=== PATIENT | female | born 1990 | race Hispanic/Latino ===

== ENCOUNTER 2022-03-27 11:56 | Emergency (ER) | payer OTHER ==
--- OUTSIDE RECORDS SUMMARY | 2022-03-27 12:00 | XMS REPORT | Continuity of Care Document ---
:1990 Author Organization [facility] t Address [address] [place] [address] Care Team Providers Name Role Phone PCP, PATIENT DOES NOT HAVE A Primary Care Physician Unavaila PEDRO PABLO Milian Attending Clinician Unavailable Matthias Albarado PA-C Attending Clinician Pedro Pablo Caraballo MD Attending Clinician Pob, [facility] Lab Main Attending Clinician Unavailable Only, Adc Test Attending Clinician Unavailable Doctor Unassigned, [place] Attending Clinician Unavailable MOOKIE Attending Clinician Unavailable Ramsey Yadav DO Attending Clinician Mary Lou Herman MD Attending Clinician Micah Fontanez CRNA Attending Clinician 2, [facility] Lab Attending Clinician Unavailable Room, [facility] Nst Attending Clinician Unavailable MATTHIAS ALBARADO Attending Clinician Unavailable Nurse, [facility] Attending Clinician Unavailable Princess Mao MD Attending Clinician PRINCESS MAO Attending Clinician Unavailable PRINCESS MAO Attending Clinician Unavailable LUCRETIA BEARDEN Attending Clinician Unavailable Ultrasound, [facility] Attending Clinician Unavailable Monisha COPELAND, [place] Attending Clinician Dominic COPELAND, Court [place] Attending Clinician [phone] Attending Clinician Unavailable Vivian Carey MD Attending Clinician VIVIAN CAREY Attending Clinician Unavailable Miguel A DUNCAN, Yancy Attending Clinician Unavailable EVIE KEEN Attending Clinician Unavailable Lori COPELAND, [place] Attending Clinician PEDRO PABLO CARABALLO Admitting Clinician Unavailable Pedro Pablo Caraballo MD Admitting Clinician MOOKIE Admitting Clinician Unavailable Payers Payer Name Policy Type Policy Number Effective Date Expiration Date Donn lainez [facility] [id number] 2020 [facility] MEDICAID 00:00:00 [facility] P [id number] [facility] - MANAGED MEDICAID [place] - [id number] WOMEN'S HEALTH PROGRAM (MEDICAID) Problems Condition Condition Condition Status Onset Resolution Last Treating Co mments Source Name Details Category Date Date Treatment Clinician Date Status Status Disease Active Univers post post 5-03 [place] of bilateral [place] salping[place] salpingect 00 Me dical carmita carmita Branch Encounter Encounter Disease Active Overview: Univers for tubal for tubal 06 Formattin i ty of ligation ligation 00:00: g of this Zeb as 00 note Medical might be Branch different from the original. Added automatic ally from request for surgery [id number] Encounter Encounter Disease Active Uni vers for tubal for tubal 308 ity of ligation ligation 00:00: [place] counseling counseling 00 Me dical Branch History of History of Disease Active U nivers 2019 01-08 it y of coronaviru coronaviru [place] disease 00 Medi carlitos (COVID-19) (COVID-19) Br anch Obesity Obesity Disease Active Univers (BMI (BMI 7-27 ity of 30-39.9) 30-39.9) 00:00: [address] Allergies, Adverse Reactions, Alerts Allergy Allergy Status Severity Reaction(s) Onset Inactive Treating Comm ents Source Name Type Date Date Clinician No Known DA Active U 2016-05 [facility] 2-08 Clear Allergie 00:00: [place] [address] [place] [address] FISH DA Active [place] 2014-05 [facility] STICKS 0-18 Clear 00:00: [place] 00 [facility] NO KNOWN Drug Active Univers ALLERGIE Class ity of S [facility] Social History Social Habit Start Date Stop Date Quantity Comments Source ASSERTION 2017[facility]06[facility]19 [facility] Exposure to 2021-08-29 2021-09-08 Not sure [facility]-CoV-2 00:00:00 09:32:00 [facility] (event) [place] Tobacco use and 2020-10-22 2020-10-22 Never used Universit y of exposure 00:00:00 00:00:00 [facility] Alcohol intake 2017-08-10 2017-08-10 Current [facility] 00:00:00 00:00:00 non-drinker of alcohol (finding) Sex Ass[birth year] At [birth year] [facility] 00:00:00 00:00:00 Smoking Status Start Date Stop Date Source Never smoker [facility] Medications Ordered Filled Start Stop Current Ordering Indication Dosage Frequency Signature Comments Components Source Medication Medication Date Date Medication? Clinician (SIG) Name Name cephALEXin 202- No [id number] 500mg Take 1 Univers 500 mg 504 05-12 capsule by ity of capsule 00:00: 04:59 mouth 4 [place] 00 :00 (four) Medical times [place] daily for 7 days. lactated Yes 1000mL at 100 Unive rs ringers IV 5-03 mL/hr, ity of infusion 19:00: 1,000 mL, [place] 1,000 mL 00 IV Medical Infusion, Branch CONTINUOUS , Starting on Wed09/09/21 at 1400, Until Discontinu ed, Routine, PACU HYDROcodone 2021- No 1{tbl} 1 tablet, Univers -acetaminop 09-09 05-03 Oral, ity of hen (NORCO 19:00: 19:09 ONCE, 1 Zeb as 5) 5-325 mg 00 :00 dose, On Medi carlitos tablet 1 Wed09/09/21 Branc h tablet at 1400, Routine, PACU HYDROcodone 2021-0 2021- No 1{tbl} 1 tablet, Univers -acetaminop 09-09 05-03 Oral, ity of hen (NORCO 19:00: 19:09 ONCE, 1 Zeb as 5) 5-325 mg 00 :00 dose, On Medi carlitos tablet 1 Wed09/09/21 Branc h tablet at 1400, Routine, PACU lactated 2021- No 1000mL at 100 Univ ers ringers IV 09-09 05-03 mL/hr, ity of infusion 19:00: 22:07 1,000 mL, Zeb as 1,000 mL 00 :32 IV Medical Infusion, Branch CONTINUOUS , Starting on Wed09/09/21 at 1400, Until Wed09/09/21 at 1707, Routine, PACU HYDROmorphO 2021-0 Yes .2mg 0.2 mg, Uni vers ne 5-03 Slow IV ity of (DILAUDID) 18:55: Push, [place] injection 41 Q5MIN PRN, Medi carlitos 0.2 mg 10 doses, Branch Starting on Wed09/09/21 at 1355, Until Discontinu ed, Routine, Pain (scale 7-10), PACU
Us e approved by (Faculty): PACU USE -ANESTHESI A SERVICE-HY DROMORPHON E INJECTIONS FENTanyl PF 2021- Yes 25ug 25 mcg, Uni vers (SUBLIMAZE 5-03 Slow IV ity of (PF)) 18:55: Push, [place] injection 41 Q5MIN PRN, Medi carlitos 25 mcg 4 doses, Branch Starting on Wed09/09/21 at 1355, Until Discontinu ed, Routine, Pain (scale 4-6), PACU ondansetron 2021-0 Yes 4mg 4 mg, Slow Univers (ZOFRAN 5-03 IV Push, ity of (PF)) 18:55: PRN, 1 [place] injection 4 41 dose, Medical mg Starting Branch on Wed09/09/21 at 1355, Until Discontinu ed, Routine, Nausea and Vomiting (N/V), PACU HYDROmorphO 2021- No .2mg 0.2 mg, Un fiordaliza ne 09-09 Slow IV ity of (DILAUDID) 18:55: 22:07 Push, [place] injection 41 :32 Q5MIN PRN, Medi carlitos 0.2 mg 10 doses, Branch Starting on Wed09/09/21 at 1355, Until Wed09/09/21 at 1707, Routine, Pain (scale 7-10), PACU
Us e approved by (Faculty): PACU USE -ANESTHESI A SERVICE-HY DROMORPHON E INJECTIONS FENTanyl PF 2021- No 25ug 25 mcg, Un fiordaliza (SUBLIMAZE 09-09 Slow IV ity o f (PF)) 18:55: 22:07 Push, [place] injection 41 :32 Q5MIN PRN, Medi carlitos 25 mcg 4 doses, Branch Starting on Wed09/09/21 at 1355, Until Wed09/09/21 at 1707, Routine, Pain (scale 4-6), PACU ondansetron 2021- No 4mg 4 mg, Slow Univers (ZOFRAN 09-09 IV Push, ity of (PF)) 18:55: 22:07 PRN, 1 [place] injection 4 41 :32 dose, Medical mg Starting Branch on Wed09/09/21 at 1355, Until Wed09/09/21 at 1707, Routine, Nausea and Vomiting (N/V), PACU bupivacaine Yes PRN, Univer s (preserv 03 Starting ity of free) 0.5% 18:26: on Wed [place] (SENSORCAIN 00 09/09/21 at [facility]) 0.5 1326, Branch % (5 mg/mL) Until injection Discontinu ed, Routine, Intra-op bupivacaine 2021- No PRN, Unive rs (preserv 09-09 05 Starting ity of free) 0.5% 18:26: 22:07 on Wed [facility] s (SENSORCAIN 00 :32 09/09/21 at Med ical E [facility]) 0.5 1326, Branch % (5 mg/mL) Until Tue injection 09/09/21 at 1707, Routine, Intra-op water for Yes PRN, Univers irrigation 5-03 Starting ity o f irrigation 18:25: on Tue [place] solution 00 09/09/21 at Medica l 1325, Branch Until Discontinu ed, Routine, Intra-op water for 2021- No PRN, Univers irrigation - 05-03 Starting ity of irrigation 18:25: 22:07 on Wed [place] solution 00 :32 09/09/21 at Medica l 1325, Branch Until e 09/09/21 at 1707, Routine, Intra-op lactated 2021- No 1000mL at 42 Unive rs ringers IV 5-03 05-03 mL/hr, ity of infusion 16:00: 15:54 1,000 mL, Zeb as 1,000 mL 00 :00 IV Medical Infusion, Branch ONCE, 1 dose, On Wed09/09/21 at 1100, Routine, DSU Pre-op lactated 2021- No 1000mL at 42 Unive rs ringers IV 5-03 05-03 mL/hr, ity of infusion 16:00: 15:54 1,000 mL, Zeb as 1,000 mL 00 :00 IV Medical Infusion, Branch ONCE, 1 dose, On Wed09/09/21 at 1100, Routine, DSU Pre-op ibuprofen Yes [id number] 600mg Take 1 Univers 600 mg 5-03 tablet by ity of tablet 00:00: mouth [place] 00 every 6 Medical (six) Branch hours as needed for Pain (scale 1-3) or Pain (scale 4-6). acetaminoph Yes [id number] 650mg Take 2 Univers en 5-03 tablets by ity of (TYLENOL) 00:00: mouth [place] 325 mg 00 every 6 Medical tablet (six) Branch hours as needed for Pain (scale 1-3) or Pain (scale 4-6). simethicone Yes [id number] 80mg Take 1 Univers 80 mg 5-03 tablet by ity of chewable 00:00: mouth [place] tablet 00 after Medical meals and Branch at bedtime. ibuprofen 2021-0 Yes [id number] 600mg Take 1 Univers 600 mg 5-03 tablet by ity of tablet 00:00: mouth [place] 00 every 6 Medical (six) Branch hours as needed for Pain (scale 1-3) or Pain (scale 4-6). acetaminoph 2021-0 Yes [id number] 650mg Take 2 Univers en 5-03 tablets by ity of (TYLENOL) 00:00: mouth [place] 325 mg 00 every 6 Medical tablet (six) Branch hours as needed for Pain (scale 1-3) or Pain (scale 4-6). simethicone 2021-0 Yes [id number] 80mg Take 1 Univers 80 mg 5-03 tablet by ity of chewable 00:00: mouth [place] tablet 00 after Medical meals and Branch at bedtime. ibuprofen 2021-0 Yes [id number] 600mg Take 1 Univers 600 mg 5-03 tablet by ity of tablet 00:00: mouth [place] 00 every 6 Medical (six) Branch hours as needed for Pain (scale 1-3) or Pain (scale 4-6). acetaminoph 2021-0 Yes [id number] 650mg Take 2 Univers en 5-03 tablets by ity of (TYLENOL) 00:00: mouth [place] 325 mg 00 every 6 Medical tablet (six) Branch hours as needed for Pain (scale 1-3) or Pain (scale 4-6). simethicone 2021-0 Yes [id number] 80mg Take 1 Univers 80 mg 5-03 tablet by ity of chewable 00:00: mouth [place] tablet 00 after Medical meals and Branch at bedtime. HYDROcodone 2021-2021- No [id number] 1{tbl} Take 1 U nivers -acetaminop 5-03 05-11 tablet by it y of hen 5-325 00:00: 04:59 mouth [place] mg tablet 00 :00 every 6 Medical (six) Branch hours as needed for Pain (scale 7-10) for up to 7 days. Indication s: acute pain HYDROcodone 2021-2021- No [id number] 1{tbl} Take 1 U nivers -acetaminop 5-03 05-11 tablet by it y of hen 5-325 00:00: 04:59 mouth [place] mg tablet 00 :00 every 6 Medical (six) Branch hours as needed for Pain (scale 7-10) for up to 7 days. Indication s: acute pain HYDROcodone 2021- No [id number] 1{tbl} Take 1 U nivers -acetaminop 5-03 05-11 tablet by it y of hen 5-325 00:00: 04:59 mouth [place] mg tablet 00 :00 every 6 Medical (six) Branch hours as needed for Pain (scale 7-10) for up to 7 days. Indication s: acute pain Yes [id number] 1{tbl} Take 1 Univers vitamin 3-09 tablet by ity of w/FA tablet 00:00: mouth [place] 00 daily. Medical Branch 2021- No [id number] 1{tbl} Take 1 Univers vitamin 3-09 05-03 tablet by ity of w/FA tablet 00:00: 00:00 mouth [place] 00 :00 daily. Medical Branch 2021- No [id number] 1{tbl} Take 1 Univers vitamin 3-09 05-03 tablet by ity of w/FA tablet 00:00: 00:00 mouth [place] 00 :00 daily. [facility] Vital Signs Vital Name Observation Time Observation Value Comments Source Systolic blood 2021-09-09 19:35:00 107 mm[Hg] [facility] Diastolic blood 2021-09-09 19:35:00 70 mm[Hg] [facility] [place] Heart rate 2021-09-09 19:30:00 60 /min [facility] Respiratory rate 2021-09-09 19:30:00 12 /min [facility] Oxygen saturation in 2021-09-09 19:30:00 99 /min [facility] Arterial blood by [facility] Pulse oximetry Branch Body temperature 2021-09-09 18:42:00 36.22 Piedad [facility] Body height 2021-08-26 15:28:00 154.9 cm [facility] Body weight 2021-08-26 15:28:00 64.4 kg [facility] BMI 2021-08-26 15:28:00 26.84 kg/m2 [facility] Systolic blood 2021-09-09 19:15:00 107 mm[Hg] Univer sity of pressure [facility] Diastolic blood 2021-09-09 19:15:00 57 mm[Hg] Unive rsity of pressure [facility] Heart rate 2021-09-09 19:15:00 64 /min Universi ty of [facility] Respiratory rate 2021-09-09 19:15:00 20 /min [facility] O[facility] saturation in 2021-09-09 19:15:00 100 /min [facility] Arterial blood by [facility] Pulse oximetry Branch Body temperature 2021-09-09 18:42:00 36.22 Piedad [facility] Body height 2021-08-26 15:28:00 154.9 cm Universi ty [facility] Body weight 2021-08-26 15:28:00 64.4 kg Universi ty [facility] BMI 2021-08-26 15:28:00 26.84 kg/m2 Universi ty [facility] Systolic blood 2021-09-08 14:41:00 112 mm[Hg] Univer sity of [facility] Diastolic blood 2021-09-08 14:41:00 76 mm[Hg] Unive rsity of [facility] Heart rate 2021-09-08 14:41:00 54 /min Universi ty [facility] Body temperature 2021-09-08 14:41:00 36.72 Piedad [facility] Body weight 2021-09-08 14:41:00 64.501 kg Universi ty [facility] BMI 2021-09-08 14:41:00 26.88 kg/m2 Universi ty [facility] Procedures Procedure Date / Time Performing Clinician Source Performed LAPAROSCOPIC 2021-09-09 17:34:00 Pedro Pablo Caraballo [facility] [place] SALPINGECTOMY [facility] POCT TEST 2021-09-09 15:32:[address] [facility] POCT TEST 2021-09-09 15:32:[address] [facility] Plan of Care Planned Activity Planned Date Details Comments Source Future Scheduled 2022-03-15 INFLUENZA [facility]ACC[facility] Test 01:39:57 [code = INFLUENZA VACCINE] Future Scheduled 2022-03-15 HEPATITIS B [facility] ospital Test 01:39:57 VACCINES (1 of 3 - 3-dose series) [code = HEPATITIS B VACCINES (1 of 3 - 3-dose series)] Future Scheduled 2022-03-15 COVID-19 VACCINE [facility] Test 01:39:57 (#1) [code = COVID-19 VACCINE (#1)] Future Scheduled 2022-03-15 Screening for [facility] Test 01:39:57 malignant neoplasm of cervix (procedure) [code = 415035126] Encounters Start End Encounter Admission Attending Care Care Encounter Source Date/Time Date/Time Type Type Clinicians Facility Department ID 2021-09-03 Outpatient PEDRO PABLO [facility] [id number] Univers 14:23:07 ity [facility] 2021-02-20 Outpatient [facility] [id number] [place] 21:47:45 [id number] [facility] 2021-09-29 2021-09-29 Outpatient PEDRO PABLO SHEPHERD [facility] [id number] Univers 08:45:00 08:45:00 ity [facility] 2021-09-10 2021-09-10 Case Per [place] [id number] Univers 00:00:00 00:00:00 Management Matthias HANDLEY [id number] ity [facility] [id number] [place] PROFESS[place] [id number] Ct dic[address] 2021-09-09 2021-09-09 Outpatient PEDRO PABLO [facility] [id number] Univers 10:16:00 14:50:00 ity [facility] 2021-09-09 2021-09-09 Hospital Pedro Pablo Caraballo [place] [id number] Univers 10:16:00 14:50:00 Encounter Ramiro HANDLEY [id number] ity [facility] [id number] [place] SURGICAL [id number] [address] 2021-09-09 2021-09-09 Surgery Pedro Pablo Caraballo [place] [id number] Univers 12:35:00 14:16:00 Cam [place] [id number] i ty of [facility] [id number] [place] SURGICAL [id number] [facility] 020 [place] 2021-09-08 2021-09-08 Office Pedro Pablo Caraballo [facility] [id number] Univers 09:45:00 09:57:31 Visit Ramiro PLATADOMINIC [id number] i ty of [facility] [id number] [place] PROFESS[place] [id number] Ct dical NAL 134 [facility] 2021-09-08 2021-09-08 Outpatient R PEDRO PABLO CARABALLO [facility] [id number] Univers 09:45:00 09:45:00 ity of [facility] 2021-09-08 2021-09-08 Optometry Doctor Srinivasa, [place] Lab Main [facility] [id number] [id number] Univers 09:00:00 09:15:00 Visit CaraballoScarlettjovan [place] [id number] ity of [place] [id number] [place] PROFESS[place] [id number] Ct dical NAL 353 [facility] 2021-09-08 2021-09-08 Outpatient R PEDRO PABLO CARABALLO [facility] [id number] Univers 09:00:00 09:00:00 ity of [facility] 2021-09-08 2021-09-08 Laboratory Only, Adc Test [facility] 1.2.840. [id number] Univers 08:45:00 09:00:00 Only Scarlett Caraballojovan [place] [id number] ity of [place] [id number] [place] CAMPUS [id number] [facility] 353 [place] 2021-09-08 2021-09-08 Orders Doctor WALLIS [id number] Univers 00:00:00 00:00:00 Only Unassigned, KACIE [id number] ity of [place] [facility] [id number] Zeb as [id number] [facility] 009 Branch 2021-09-04 2021-09-04 Outpatient R PEDRO PABLO CARABALLO [facility] [id number] Univers 09:45:00 09:45:00 ity of [facility] 2021-09-04 2021-09-04 Telephone Pedro Pablo Caraballo [facility] [id number] Univers 00:00:00 00:00:00 Cam [place] [id number] i ty of [place] 4.2.7.2.686 [place] PROFESS[place] [id number] [address] 2021-08-29 2021-08-29 Outpatient KIM_MACHELLE [facility] [id number] [place] 11:52:00 11:52:00 [facility] 2021-08-13 2021-08-13 Outpatient R SCARLETT CARABALLOEN [facility] [id number] Univers 11:15:00 11:34:52 ity of [facility] 2021-08-13 2021-08-13 [facility] [id number] Univers 11:15:00 11:34:52 Cam [place] [id number] ity of Visit [place] 4.2.7.2.686 [place] PROF[place] [id number] [address] 2021-08-06 2021-08-06 Telephone [facility] 1.2.840.114 [id number] Univers 00:00:00 00:00:00 Cam [place] [id number] i ty of [place] 4.2.7.2.686 [place] PROF[place] [id number] [address] 2021-07-28 2021-07-28 Orders Doctor KADI 1.2.840.114 [id number] Univers 00:00:00 00:00:00 Only Unassigned, KACIE [id number] ity of [place] [facility] 4.2.7.2.686 Zeb as [id number] [address] 2021-07-22 2021-07-22 Telephone Hal [facility] 1.2.840.114 [id number] Univers 00:00:00 00:00:00 Cam [place] [id number] i ty of [place] 4.2.7.2.686 [place] PROFESS[place] [id number] Ct dical NAL 134 [facility] 2021-07-21 2021-07-21 Outpatient R [facility] [id number] Univers 08:00:00 08:00:00 ity of [facility] 2021-07-18 2021-07-18 Telephone Pedro Pablo Carablalo [facility] 1.2.840.114 [id number] Univers 00:00:00 00:00:00 Cam [place] [id number] i ty of [place] 4.2.7.2.686 [place] PROFESSIO [id number] Ct dical NAL [address] [place] [address] 2021-07-17 2021-07-17 Outpatient R [facility] [id number] Univers 08:00:00 08:00:00 ity of [facility] 2021-07-15 2021-07-16 Hospital Ramsey Yadav [facility] 1.2.840.1 [id number] Univers 09:07:00 22:23:00 Encounter Mary Lou Herman END[place] [id number] ity of Pedro Pablo Caraballo Cam [place] 4.2.7.2.686 [facility] [id number] [address] 2021-07-16 2021-07-16 Anesthesia Estee [facility] 1.2.840.114 [id number] Univers 20:03:25 20:03:25 Event Micah [place] [id number] i ty of [place] 4.2.7.2.686 [place] CAMP[place] [id number] [address] 2021-07-15 2021-07-15 Telephone Pedro Pablo Caraballo [facility] 1.2.840.114 [id number] Univers 00:00:00 00:00:00 Ramiro ENDER [id number] i ty of [place] 4.2.7.2.686 [place] PROFESS[place] [id number] Ct dical NAL [address] [place] [address] 2021-07-14 2021-07-14 Optometry Doctor 2, Adc Lab [facility] 1.2.840.114 [id number] Univers 09:45:00 10:00:00 Visit Pedro Pablo Caraballo [id number] ity of [place] [id number] [place] PROF[place] [id number] Ct dical NAL 353 [facility] 2021-07-14 2021-07-14 Routine Room, [facility] 1.2.840.1 [id number] Univers 08:00:00 09:16:13 Pedro Pablo Caraballo [id number] ity of Visit [place] [id number] [place] PROFESS[place] [id number] Ct dical NAL 134 [facility] 2021-07-14 2021-07-14 Outpatient R PEDRO PABLO CARABALLO [facility] [id number] Univers 08:00:00 09:16:13 ity of [facility] 2021-07-14 2021-07-14 Outpatient R PEDRO PABLO CARABALLO [facility] [id number] Univers 08:00:00 09:16:13 ity [facility] 2021-07-14 2021-07-14 Orders Doctor KADI 1.2.840.114 [id number] Univers 00:00:00 00:00:00 Only Unassigned, KACIE [id number] ity of [place] [facility] 4.2.7.2.686 Zeb as [id number] [address] 2021-07-10 2021-07-10 Optometry Doctor 2, [facility] 1.2.840.114 [id number] Univers 09:30:00 09:45:00 Visit Pedro Pablo Caraballo [id number] ity of [place] 4.2.7.2.686 [place] PROF[place] [id number] Ct dical NAL 353 [facility] 2021-07-10 2021-07-10 Outpatient R PEDRO PABLO CARABALLO [facility] [id number] Univers 09:30:00 09:30:00 ity of [facility] 2021-07-10 2021-07-10 Routine Room, [facility] 1.2.840.1 [id number] Univers 08:00:00 09:15:03 Pedro Pablo Caraballo [id number] ity of Visit [place] [id number] [place] PROF[place] [id number] Ct dical NAL [address] [place] [address] 2021-07-07 2021-07-07 Outpatient R PER [facility] [id number] Univers 08:00:00 08:58:57 MATTHIAS ity [facility] 2021-07-07 2021-07-07 Routine Room, [facility] 1.2.840.1 [id number] Univers 08:00:00 08:58:57 Matthias Albarado [id number] ity of Visit [place] [id number] [place] PROF[place] [id number] Ct dical NAL [address] [place] [address] 2021-07-07 2021-07-07 Outpatient R [facility] [id number] Univers 08:00:00 08:00:00 ity of [facility] 2021-07-07 2021-07-07 Refill Pedro Pablo Caraballo [facility] [id number] Univers 00:00:00 00:00:00 Cam END[place] [id number] i ty of [place] [id number] [place] PROFESS[place] [id number] Ct dical NAL [address] [place] [address] 2021-07-03 2021-07-03 Pedro Pablo Bauman [facility] [id number] Univers 00:00:00 00:00:00 Management Cam ENDER [id number] ity of [place] [id number] [place] PROFESS[place] [id number] Ct dical NAL [address] [place] [address] 2021-07-02 2021-07-02 Outpatient R PER [facility] [id number] Univers 13:30:00 15:07:47 MATTHIAS itrajinder [facility] 2021-07-02 2021-07-02 Routine Per [facility] [id number] Univers 13:30:00 15:07:47 Matthias [place] [id number] ity of Visit [place] [id number] [place] PROFESS[place] [id number] Ct dical NAL 134 [facility] 2021-06-30 2021-06-30 Outpatient R PEDRO PABLO CARABALLO [facility] [id number] Univers 10:00:00 11:08:47 ity of [facility] 2021-06-30 2021-06-30 Routine Room, [facility] 1.2.840.1 14 [id number] Univers 10:00:00 11:08:47 Pedro Pablo Caraballo 350.1.13.10 ity of [place] [id number] Ct dical NAL [address] [place] [address] 2021-06-26 2021-06-26 Nurse Nurse, [facility] Women[facility] Health [facility] 1.2.840.114 [id number] Univers 08:00:00 09:04:04 Visit Matthias Albarado 350.1.13.10 ity of [place] [id number] Ct dical NAL [address] [place] [address] 2021-06-26 2021-06-26 Optometry Doctor 2, [facility] Lab [facility] 1.2.840.114 [id number] Univers 08:30:00 08:30:07 Visit Matthias Albarado 350.1.13.10 ity of [facility] [place].7.2.[place] [id number] Ct dical NAL 353 [facility] 2021-06-26 2021-06-26 Outpatient R PER [facility] [id number] Univers 08:00:00 08:00:00 MATTHIAS ity of [facility] 2021-06-26 2021-06-26 Telephone Pedro Pablo Caraballo [facility] 1.2.840.114 [id number] Univers 00:00:00 00:00:00 Ramiro HANDLEY 350.1.13.10 i ty of [facility] 4.2.7.2.[place] [id number] Ct dical NAL [address] [place] [address] 2021-06-23 2021-06-23 Telephone Pedro Pablo Caraballo [facility] 1.2.840.114 [id number] Univers 00:00:00 00:00:00 Cam [place] 350.1.13.10 i ty of [place] [phone] Ct dical NAL [address] [place] [address] 2021-06-22 2021-06-22 Case Pedro Pablo Caraballo [facility] 1.2.333.665 [id number] Univers 00:00:00 00:00:00 Management Cam [place] 350.1.13.10 ity of [place] [id number] Ct dical NAL [address] [place] [address] 2021-06-19 2021-06-19 Outpatient R PEDRO PABLO CARABALLO [facility] [id number] Univers 11:15:00 12:11:28 ity [facility] 2021-06-19 2021-06-19 Routine Hal [facility] 1.2.379.726 [id number] Univers 11:15:00 12:11:28 Cam [place] 350.1.13.10 ity of [place] [phone] Ct dical NAL [address] [place] [address] 2021-06-18 2021-06-18 Outpatient R PEDRO PABLO CARABALLO [facility] [id number] Univers 09:00:00 09:00:00 ity [facility] 2021-06-16 2021-06-16 Nurse Nurse, [facility] 1.2.840.114 [id number] Univers 09:00:00 09:12:50 Visit Pedro Pablo Caraballo Ramiro HANDLEY 350.1.13.10 ity of [place] [id number] Ct dical NAL [address] [place] [address] 2021-06-16 2021-06-16 Outpatient R PEDRO PABLO CARABALLO [facility] [id number] Univers 09:00:00 09:00:00 ity [facility] 2021-06-13 2021-06-13 Outpatient R [facility] [id number] Univers 08:00:00 08:00:00 ity [facility] 2021-06-122021-06-12 Outpatient R [facility] [id number] Univers 08:00:00 08:00:00 ity [facility] 2021-06-05 2021-06-05 Outpatient R PER [facility] [id number] Univers 10:00:00 10:30:16 MATTHIAS itrajinder [facility] 2021-06-05 2021-06-05 Routine Per [facility] 1.2.703.158 [id number] Univers 10:00:00 10:30:16 Matthias HAND[place] 350.1.13.10 ity of [facility] 4.[place] [id number] Ct dic[address] 2021-06-05 2021-06-05 Outpatient R PER [facility] [id number] Univers 08:00:00 08:00:00 [facility] 2021-06-05 Orders Doctor WALLIS 1..840.114 [id number] Univers 00:00:00 00:00:00 Only Unassigned, KACIE 350.1.13.10 ity of [place] [facility] 4.2.7.2.686 Zeb as [id number] [address] 2021-05-29 2021-05-29 Outpatient R PEDRO PABLO CARABALLO [facility] [id number] Univers 08:00:00 08:14:27 ity [facility] 2021-05-29 2021-05-29 Nurse Nurse, [facility] 1.2.840.114 [id number] Univers 08:00:00 08:14:27 Visit Pedro Pablo Caraballo 350.1.13.10 ity of [place] [phone] Ct dic[address] 2021-05-22 2021-05-22 Outpatient R PEDRO PABLO CARABALLO [facility] [id number] Univers 08:00:00 08:15:05 ity [facility] 2021-05-22 2021-05-22 Nurse Nurse, [facility] 1.2.840.114 [id number] Univers 08:00:00 08:15:05 Visit Pedro Pablo Caraballo SH[place] 350.1.13.10 ity of [facility] 4.2.7.2.[place] [id number] Ct dical NAL 134 [facility] 2021-05-16 2021-05-16 Telephone Pedro Pablo Caraballo [facility] 1.2.840.114 [id number] Univers 00:00:00 00:00:00 Cam [place] 350.1.13.10 i ty of [facility] 4.2.7.2.[place] [id number] Ct dical NAL 134 [facility] 2021-05-15 2021-05-15 Outpatient R PEDRO PABLO CARABALLO [facility] [id number] Univers 08:45:00 08:45:00 ity of [facility] 2021-05-15 2021-05-15 Optometry Doctor 2, [facility] 1.2.840.114 [id number] Univers 08:45:00 08:45:00 Visit Pedro Pablo Caraballo ENDER 350.1.13.10 ity of [place] [id number] Ct roni HUYNH 353 [facility] 2021-05-15 2021-05-15 Nurse Nurse, [facility] Women[facility] Health [facility] 1.2.840.114 [id number] Univers 08:00:00 08:18:10 Visit Pedro Pablo CaraballoDOMINIC 350.1.13.10 ity of [facility] 4.2.[place].2.[place] [id number] Ct dical NAL 134 [facility] 2021-05-08 2021-05-08 Outpatient R PEDRO PABLO CARABALLO [facility] [id number] Univers 11:15:00 11:55:55 ity of [facility] 2021-05-08 2021-05-08 [facility] 1.2.528.048 [id number] Univers 11:15:00 11:55:55 Cam [place] 350.1.13.10 ity of [facility] 4.2.7.2.[place] [id number] Ct dical [address] 2021-05-08 2021-05-08 Outpatient R PEDRO PABLO CARABALLO [facility] [id number] Univers 11:15:00 11:15:00 ity of [facility] 2021-05-01 2021-05-01 Outpatient R PEDRO PABLO CARABALLO [facility] [id number] [facility] 08:00:00 08:15:58 ity of [facility] 2021-05-01 2021-05-01 Nurse Nurse, [facility] 1.2.840.114 [id number] [facility] 08:00:00 08:15:58 Visit Pedro Pablo Caraballo [place] 350.1.13.10 ity of [place] [id number] Ct dic[address] 2021-04-30 2021-04-30 Case Pedro Pablo Caraballo [facility] 1.2.224.826 [id number] Univers 00:00:00 00:00:00 Management Ramiro HANDLEY 350.1.13.10 ity of [place] [id number] Ct dic[address] 2021-04-30 2021-04-30 Orders Doctor KADI 1.2.840.114 [id number] Univers 00:00:00 00:00:00 Only Unassigned, KACIE 350.1.13.10 ity of [place] [facility] 4.2.7.2.686 Zeb as [id number] [address] 2021-04-24 2021-04-24 Nurse Nurse, [facility] 1.2.840.114 [id number] [facility] 09:00:00 09:20:06 Visit Princess Mao 350.1.13.10 ity of [place] [id number] [address] 2021-04-24 2021-04-24 Outpatient R PRINCESS MAO [facility] [id number] [facility] 09:00:00 09:00:00 PRINCESS MAO ity [facility] 2021-04-17 2021-04-17 Nurse Nurse, [facility] 1.2.840.114 [id number] Univers 07:54:09 08:09:09 Visit Pedro Pablo Caraballo [place] 350.1.13.10 ity of [facility] 4.2.7.2.[place] [id number] Ct dical [address] 2021-04-17 2021-04-17 Outpatient R [facility] [id number] Univers 08:00:00 08:00:00 ity of [facility] 2021-04-17 2021-04-17 Outpatient R PEDRO PABLO CARABALLO [facility] [id number] Univers 08:00:00 08:00:00 ity of [facility] 2021-04-17 2021-04-17 Case Pedro Pablo Caraballo [facility] 1.2.126.182 [id number] Univers 00:00:00 00:00:00 Management Ramiro HANDLEY 350.1.13.10 ity of [facility] 4[place]2.[place] [id number] Ct dic[address] 2021-04-16 2021-04-16 Case Pedro Pablo Caraballo [facility] 1.2.942.940 [id number] Univers 00:00:00 00:00:00 Management Ramiro HANDLEY 350.1.13.10 ity of [place].2.[place] [id number] [address] 2021-04-16 2021-04-16 Orders Doctor KADI 1.2.840.114 [id number] Univers 00:00:00 00:00:00 Only Unassigned, KACIE 350.1.13.10 ity of [place] [facility] 4.2.7.2.686 Zeb as [phone] [address] 2021-04-14 2021-04-14 Case Per [facility] 1.2.995.491 [id number] Univers 00:00:00 00:00:00 Management Matthias [place] 350.1.13.10 ity of [facility] 4.2.7.2.[place] [phone] Ct [address] 2021-04-10 2021-04-11 Outpatient P MONISHA [facility] [id number] Univers 08:00:00 11:04:32 LUCRETIA cordoba [facility] 2021-04-10 2021-04-10 Routine Per [facility] 1.2.335.043 [id number] Univers 08:37:06 09:38:17 Matthias [place] 350.1.13.10 ity of Visit [place] 4.2.7.2.686 Texpraveena MARTÍNEZESSKASIA [phone] [address] 2021-04-10 2021-04-10 Outpatient R PER [facility] [id number] Univers 09:00:00 09:00:00 MATTHIAS [facility] 2021-04-10 2021-04-10 Optometry Doctor Ultrasound, [facility] 1.2 .840.114 [id number] Univers 07:54:36 08:24:36 Visit Princess Mao ENTRY PROCESSOR [address].1.13.[address] [facility] MonishaLucretia lopez [facility] 4.2.7.2.686 [place] MATERNAL [phone] Med ical & CHILD [address] [place] [address] 2021-04-02 2021-04-02 Nurse Nurse, [facility] 1.2.840.114 [id number] Univers 10:09:37 10:44:38 Visit Pedro Pablo Caraballo 350.1.13.10 ity [facility] 4.2.7.2.686 Patti MARTÍNEZESSKASIA [id number] [address] 2021-04-02 2021-04-02 Outpatient R PEDRO PABLO CARABALLO [facility] [id number] Univers 10:00:00 10:44:38 ity [facility] 2021-04-02 2021-04-02 Outpatient R PEDRO PABLO CARABALLO [facility] [id number] Univers 10:00:00 10:00:00 ity [facility] 2021-03-31 2021-03-31 Telephone Pedro Pablo Caraballo [facility] 1.2.840.114 [id number] Univers 00:00:00 00:00:00 Ramiro HANDLEY 350.1.13.10 i ty of [place] [id number] [address] 2021-03-27 2021-03-27 Outpatient R PEDRO PABLO CARABALLO [facility] [id number] Univers 14:00:00 09:25:41 ity of [facility] 2021-03-27 2021-03-27 Nurse Nurse, [facility] 1.2.840.114 [id number] Univers 08:59:42 09:25:41 Visit Pedro Pablo Caraballo [facility] 350.1.13.10 ity of [place] [id number] [address] 2021-03-27 2021-03-27 Optometry Doctor [facility]trasound, [facility] 1.2 .840.114 [id number] Univers 07:59:09 08:59:09 Visit Princess Mao ENTRY PROCESSOR 350.1.13.10 ity of [facility] 4.2.7.2 .686 [place] MATERNAL [phone] [facility] ical & CHILD [address] [place] [address] 2021-03-20 2021-03-20 Nurse Nurse, [facility] 1.2.840.114 [id number] Univers 09:02:31 09:43:57 Visit PedroP ablo Caraballo [facility] 350.1.13.10 ity of [place] [id number] [address] 2021-03-20 2021-03-20 Outpatient R [facility] [id number] Univers 09:00:00 09:00:00 ity of [facility] 2021-03-20 2021-03-20 Outpatient R PEDRO PABLO CARABALLO [facility] [id number] Univers 09:00:00 09:00:00 ity of [facility] 2021-03-13 2021-03-13 Optometry Doctor Ultrasound, [facility] 1.2 .840.114 [id number] Univers 07:59:06 08:29:06 Visit Princess Mao ENTRY PROCESSOR 350.1.13.[address] [facility] 4.2.7.2 .686 [place] MATERNAL [id number] [facility] ical & CHILD [address] [place] [address] 2021-03-13 2021-03-13 Outpatient P [facility] [id number] Univers 08:00:00 08:00:00 ity [facility] 2021-03-13 2021-03-13 Outpatient P [facility] [id number] Univers 08:00:00 08:00:00 CHASE ity [facility] 2021-03-12 2021-03-12 Routine Pedro Pablo Caraballo [facility] 1.2.248.551 [id number] Univers 11:02:16 11:50:57 Cam [facility] 350.1.13.10 ity of [facility] 4.2.7.2.[place] ESSKASIA [id number] [address] 2021-03-12 2021-03-12 Outpatient R PEDRO PABLO CARABALLO [facility] [id number] Univers 11:00:00 11:50:57 ity [facility] 2021-03-03 2021-03-03 Telephone Pedro Pablo Caraballo [facility] 1.2.840.114 [id number] Univers 00:00:00 00:00:00 Ramiro [place] 350.1.13.10 i ty of [place].2.[place] [id number] [address] 2021-02-28 2021-02-28 Telephone Pedro Pablo Caraballo [facility] 1.2.840.114 [id number] Univers 00:00:00 00:00:00 Cam [place] 350.1.13.10 i ty of [place] 4[place].7.2.[place] [phone] [address] 2021-02-27 2021-02-27 Optometry Doctor [facility]trasound, [facility] 1.2 .840.114 [id number] Univers 07:56:39 08:30:02 Visit Princess Mao ENTRY PROCESSOR 350.1.13.10 ity of [facility] 4.2.7.2.686 Zeb as MATERNAL [id number] [facility] ical & CHILD [address] [place] [address] 2021-02-27 2021-02-27 Outpatient P [facility] [id number] Univers 08:00:00 08:00:00 ity of [facility] 2021-02-11 2021-02-11 [facility] 1.2.237.656 [id number] Univers 11:02:16 12:02:25 Matthias Ender 350.1.13.10 ity of [place].2.[place] Profess[place] [id number] Ct dical nal [address] [place] [address] 2021-02-11 2021-02-11 Outpatient R PER [facility] [id number] Univers 11:00:00 11:00:00 [facility] 2021-02-06 2021-02-06 [facility] [id number] Univers 11:00:00 11:00:00 [facility] 2021-02-05 2021-02-05 Outpatient R [facility] [id number] Univers 15:30:00 15:30:00 [facility] 2021-02-05 2021-02-05 Orders Doctor KADI 1.2.840.114 [id number] Univers 00:00:00 00:00:00 Only Unassigned, KACIE 350.1.13.10 ity of [place] [facility] 4.2.7.2.686 Zeb as [phone] [address] 2021-01-29 2021-01-29 Telephone Pedro Pablo Caraballo [facility] 1.2.840.114 [id number] Univers 00:00:00 00:00:00 Ramiro [place] 350.1.13.10 i ty of [place] 4[place]2.7.2.[place] Profess[place] [phone] Ct dical nal [address] [place] [address] 2021-01-29 2021-01-29 Orders Doctor KADI 1.2.840.114 [id number] Univers 00:00:00 00:00:00 Only Unassigned, KACIE 350.1.13.10 ity of [place] [facility] 4.2.7.2.686 Zeb as [id number] [address] 2021-01-24 2021-01-24 Case Pedro Pablo Caraballo [facility] 1.2.556.621 [id number] Univers 00:00:00 00:00:00 Management Cam [place] 350.1.13.10 ity of [place] 4[place].2.[place] Profess[place] [id number] Ct dical nal 134 [facility] 2021-01-23 2021-01-23 Telephone Pedro Pablo Caraballo [facility] 1.2.840.114 [id number] Univers 00:00:00 00:00:00 Cam [place] 350.1.13.10 i ty of [place].2.[place] Profess[place] [id number] Ct dical nal 134 [facility] 2021-01-20 2021-01-20 Optometry Doctor 2, Adc Lab [facility] 1.2.840.114 [id number] Univers 08:17:28 08:32:28 Visit Pedro Pablo Caraballo Ramiro [place] 350.1.13.10 ity of [place] 4[place].2.[place] Profess[place] [id number] Ct dicdelia nal 353 [facility] 2021-01-20 2021-01-20 Outpatient R [facility] [id number] Univers 08:15:00 08:15:00 ity of [facility] 2021-01-20 2021-01-20 Telephone Pedro Pablo Caraballo [facility] 1.2.840.114 [id number] Univers 00:00:00 00:00:00 Cam [place] 350.1.13.10 i ty of [place].2.[place] Profess[place] [phone] Ct dical nal 134 [facility] 2021-01-17 2021-01-17 Case Pedro Pablo Caraballo [facility] 1.2.621.652 [id number] Univers 00:00:00 00:00:00 Management Cam [place] 350.1.13.10 ity of [place] 4[place].2.[place] Profess[place] [phone] Ct dical nal 134 [facility] 2021-01-15 2021-01-15 Optometry Doctor 2, Adc Lab [facility] 1.2.840.114 [id number] Univers 08:12:17 08:27:17 Visit Pedro Pablo Caraballo 350.1.13.10 ity of [place] 4[place]2.7.2.[place] Profess[place] [phone] Ct dical nal 353 [facility] 2021-01-15 2021-01-15 Outpatient R [facility] [id number] Univers 08:00:00 08:00:00 ity of [facility] 2021-01-15 2021-01-15 Case Per [facility] 1.2.438.860 [id number] Univers 00:00:00 00:00:00 Management Matthias [place] 350.1.13.10 ity of [place] 4[place].7.2.[place] [phone] Ct dical nal 134 [facility] 2021-01-08 2021-01-08 Initial Pedro Pablo Caraballo [facility] 1.2.840.114 [id number] Univers 13:42:33 14:58:57 Vivian Carey 350.1.13.10 ity of [place] 4[place]2.7.2.[place] Profess[place] [id number] Ct dical nal 134 [facility] 2021-01-08 2021-01-08 Outpatient R IADA [facility] [id number] Univers 13:30:00 13:30:00 VIVIAN cordoba [facility] 2021-01-08 2021-01-08 Orders Doctor WALLIS 1.2.840.114 [id number] Univers 00:00:00 00:00:00 Only Unassigned, KACIE 350.1.13.10 ity of [place] [facility] 4.2.7.2.686 Zeb as [id number] [address] 2021-01-06 2021-01-06 Outpatient R PEDRO PABLO CARABALLO [facility] [id number] Univers 14:30:00 14:30:00 ity of [facility] 2020-12-26 2020-12-26 Outpatient R PEDRO PABLO CARABALLO [facility] [id number] Univers 10:00:00 10:00:00 ity [facility] 2020-12-26 2020-12-26 Letter Miguel AYancy KADI 1.2.840.114 [id number] Univers 00:00:00 00:00:00 (Out) KACIE 350.1.13.10 it y of [facility] 4.2.7.2.686 Zeb as [id number] [address] 2020-12-26 2020-12-26 Telephone Pedro Pablo Caraballo [facility] 1.2.840.114 [id number] Univers 00:00:00 00:00:00 Ramiro [place] 350.1.13.10 i ty [facility] [place]2.7.2.[place] [id number] Ct dical nal 134 [facility] 2020-12-24 2020-12-24 [facility] [id number] Univers 20:00:00 20:00:00 EVIE ity [facility] 2020-12-07 2020-12-07 Optometry Doctor Srinivasa, Adc Lab Main [facility] 1.2.8 40.114 [id number] Univers 11:51:46 12:06:46 Visit Chago Sandoval 350.1.13.10 ity [facility] 4.2.7.2.[place] [phone] Ct dical nal 353 [facility] 2020-12-07 2020-12-07 Outpatient R [facility] [id number] Univers 11:45:00 11:45:00 ity [facility] 2020-12-05 2020-12-05 Optometry Doctor 2, Adc Lab [facility] 1.2.840.114 [id number] Univers 11:59:19 12:14:19 Visit Pedro Pablo Caraballo 350.1.13.10 ity [facility] 4.2.7.2.[place] Profess[place] [phone] Ct dical nal 353 [facility] 2020-12-05 2020-12-05 Outpatient R [facility] [id number] Univers 11:45:00 11:45:00 ity [facility] 2020-12-05 2020-12-05 Orders Doctor KADI 1.2.840.114 [id number] Univers 00:00:00 00:00:00 Only Unassigned, KACIE 350.1.13.10 ity of [place] [facility] 4.2.7.2.686 Zeb as [id number] [address] 2020-12-03 2020-12-03 Optometry Doctor 2, Adc Lab [facility] 1.2.840.114 [id number] Univers 15:31:02 15:46:02 Visit Pedro Pablo Caraballo 350.1.13.10 ity of [place].2.[place] [phone] Ct [facility] 353 [facility] 2020-12-03 2020-12-03 Office Pedro Pablo Caraballo [facility] 1.2.225.557 [id number] Univers 14:24:39 15:28:36 Visit Ramiro [place] 350.1.13.10 i ty of [place] 4[place]2.7.2.[place] [phone] Ct dical nal 134 [facility] 2020-12-03 2020-12-03 Outpatient R PEDRO PABLO CARABALLO [facility] [id number] Univers 14:30:00 14:30:00 ity of [facility] 2020-11-20 2020-11-20 Orders Doctor KADI 1.2.840.114 [id number] Univers 00:00:00 00:00:00 Only Unassigned, KACIE 350.1.13.10 ity of [place] [facility] 4.2.7.2.686 Zeb as [phone] [address] 2020-11-13 2020-11-13 Telephone Per [facility] 1.2.840.114 [id number] Univers 00:00:00 00:00:00 Matthias Handley 350.1.13.10 i ty of [place].2.[place] [phone] Ct dical nal 134 [facility] 2020-11-11 2020-11-11 Office Pedro Pablo Caraballo [facility] 1.2.173.922 [id number] Univers 09:05:00 09:58:00 Visit Ramiro Ender 350.1.13.10 i ty of [place] 4[place]2.7.2.[place] [phone] Ct dical nal [address] [place] [address] 2020-11-11 2020-11-11 Outpatient R PEDRO PABLO CARABALLO [facility] [id number] Univers 09:00:00 09:00:00 ity of [facility] 2020-11-11 2020-11-11 Orders Doctor KADI 1.2.840.114 [id number] Univers 00:00:00 00:00:00 Only Unassigned, KACIE 350.1.13.10 ity of [place] [facility] 4.2.7.2.686 Zeb as [phone] [address] 2020-11-01 2020-11-01 [facility]phone [facility].2.840.114 [id number] [facility] 00:00:00 00:00:00 Matthias Handley [id number] [id number] [phone] [place] dical nal [address] [place] [address] 2020-10-22 2020-10-22 [facility] [id number] [facility] 13:39:51 14:38:54 Visit Matthias Ender [id number] [id number] [phone] [place] dical [place]al [address] [place] [address] 2020-10-22 2020-10-22 Outpatient R PER [facility] [id number] [facility] 13:30:00 13:30:00 MATTHIAS itrajinder [facility] 2020-10-22 2020-10-22 Orders Doctor KADI 1.2.840.114 [id number] [facility] 00:00:00 00:00:00 Only Unassigned, KACIE [id number] ity of [place] [facility] [id number] Zeb as [phone] [address] 2020-07-14 2020-07-14 Orders Doctor WALLIS 1.2.840.114 [id number] [facility] 00:00:00 00:00:00 Only Unassigned, KACIE [id number] ity of [place] [facility] 4.2.7.2.686 [facility] as [phone] [address] Results Test Description Test Time Test Comments Results Result Comments Source POCT Test 2021-09-09 15:32:00 Test Item Value Reference Range Interpretation Comme nts POCT PREG (test code = 1605) Negative On board controls acceptable with C Line (test code = 3574) Yes POCT PREG LOT # (test code = 3575) [id number] POCT PREG TEST DATE (test code = 3576) [facility]07[facility]07 [id number] 15:32:00 Test Item Value Reference Range Interpretation Comments POCT PREG (test code = 1605) Negative On board controls acceptable with Yes C Line (test code = 3574) POCT PREG LOT # (test code = 3575) [id number] POCT PREG TEST DATE (test 2022-07-07 code = 3576) [facility] [id number] 15:21:00 Test Item Value Reference Range Interpretation Comments ISTAT-SODIUM (test code = NAP) MMOL/L 134-147 ISTAT-POTASSIUM (test code = KP) MMOL/L 3.4-5.0 ISTAT-CHLORIDE (test code = CLP) MMOL/L 100-108 ISTAT CARBON DIOXIDE (test code = mmol/L 21-33 N ISTAT-CO2) ISTAT CALCIUM IONIZED (test code = MG/DL 1.12-1.32 ISTAT-MADDIE) ISTAT-GLUCOSE (test code = GLUP) MG/DL 70-110 N ISTAT-BUN (test code = BUNP) MG/DL 7-18 N BEDSIDE CREATININE (test code = MG/DL 0.6-1.3 N CREATBED) GLOMERULAR FILTRATION RATE POC 106 ML/MIN (test code = GFRBED) CHEMISTRY 8 [id number] 15:21:00 Test Item Value Reference Range Interpretation Comments ISTAT-SODIUM (test 141 MMOL/L 134-147 N code = NAP) ISTAT-POTASSIUM (test 3.8 MMOL/L 3.4-5.0 N code = KP) ISTAT-CHLORIDE (test 106 MMOL/L 100-108 N Perform ed by code = CLP) certified opera tor at [facility] ed C[facility] ISTAT CARBON DIOXIDE 23.0 mmol/L 21-33 N (test code = ISTAT-CO2) ISTAT CALCIUM IONIZED 1.19 MG/DL 1.12-1.32 N (test code = ISTAT-MADDIE) ISTAT-GLUCOSE (test 89 MG/DL 70-110 N code = GLUP) ISTAT-BUN (test code = 9 MG/DL 7-18 N BUNP) BEDSIDE CREATININE 0.7 MG/DL 0.6-1.3 N (test code = CREATBED) GLOMERULAR FILTRATION 106 ML/MIN RATE POC (test code = GFRBED) - XR CHEST 1 [id number] 14:44:00 FAX: Emma Stroud DO [phone] [place]: St: REG FAX: Leslie Oleary NP [phone] --------- Name: CAROLE ORTIZ [facility] : 1990 Age/S: 28/F [address] [place] [address] Unit #: [id number] Loc: [facility] [id number] Phys: Leslie Oleary NP Acct: [id number] Dis Date: Status: REG ER PHONE #: [phone] Exam Date: 02/02/2019 1433 FAX #: [phone] Reason: Chest Pain EXAMS: CPT CODE: [id number] XR CHEST 1 V [id number] 1 VIEW CXR. PORTABLE EXAM 2:26 PM HISTORY: Chest pain and dizziness for the past week. COMPARISON: 12/08/2016 chest x-ray. The lungs are clear with normal pulmonary vasculature. Cardiomediastinal silhouette normal. No pleural abnormality. Bony thorax intact. IMPRESSION: Normal exam. END OF IMPRESSION SL: [id number] at 2744 Reported and signed by: Stefan Fox M.D. CC: Emma Mcnulty DO; Leslie Oleary NP Technologist: RT Urmila(R) Trnscrd Date/Time/By: 02/02/2019 (3455) : By: Tommy Orig Print D/T: S: 02/02/2019 (1820) PAGE 1 Signed Report HCG SERUM [id number] 14:16:00 Test Item Value Reference Range Interpretation Comments HCG SERUM QUAL (test code = SERUM NEGATIVE NEGATIVE HCGQL) THYROID STIMULATING [id number] 14:16:00 Test Item Value Reference Range Interpretation Comments THYROID STIMULATING 5.29 0.42-5.47 N Results in HORMONE (test code = TSH) mi lli-International Units/mL [id number] 14:03:00 Test Item Value Reference Range Interpretation Comments D-DIMER (test 376 ng/mlFEU <=500 N THROMBOSIS AND /OR PULMONARY code = EMBOLISM AND TH E CLINICAL DDIMER) CUT- OFF VALUE FOR EXCLUSION (500 ng/mL FEU) OF THESE CONDITIONSIS VA LIDATED BY THE MANUFACTURE R OF THE METHOD. A NEGAT GURJIT D-DIMER RESULT WHEN COM BINED WITH A CLINICALASSESSM ENT OF LOW PRETEST PROBABI LITY HAS BEEN SHOWN TO HAVEA HIGH NEGATIVE PREDICTIVE VALU E OF DVT OR PE. D-DIMER NOLAN UES >500 ng/mL FEU ARE N OT DIAGNOSTIC FOR DVT, PEor D IC WITHOUT OTHER CONFIRMAT ORY TESTS AND APPROPRIATECLIN ICAL EUALUATIONS. HCG SERUM [id number] 13:57:00 Test Item Value Reference Range Interpretation Comments HCG SERUM QUAL (test code = SERUM NEGATIVE NEGATIVE HCGQL) THYROID STIMULATING [id number] 13:57:00 Test Item Value Reference Range Interpretation Comments THYROID STIMULATING HORMONE (test code 0.42-5.47 = TSH) CBC W/AUTO [id number] 13:49:00 Test Item Value Reference Range Interpretation Comments WHITE BLOOD CELL (test code = 7.03 x10 3/uL 4.5-11.0 N WBC) RED BLOOD CELL (test code = 4.82 x10 6/uL 3.54-5.02 N RBC) HEMOGLOBIN (test code = HGB) 14.2 g/dL 11.0-15.0 N HEMATOCRIT (test code = HCT) 42.1 % 33.0-45.0 N MEAN CELL VOLUME (test code = 87.3 fL 81.0-99.0 N MCV) MEAN CELL HGB (test code = MCH) 29.5 pg 27.0-33.0 N MEAN CELL HGB CONCETRATION 33.7 g/dL 33.0-37.0 N (test code = MCHC) RED CELL DISTRIBUTION WIDTH CV 12.1 % 11.5-14.5 N (test code = RDW) RED CELL DISTRIBUTION WIDTH SD 39.0 fL 37.0-54.0 N (test code = RDW-SD) PLATELET COUNT (test code = 321 x10 3/uL 150-400 N PLT) MEAN PLATELET VOLUME (test code 11.0 fL 7.0-9.0 H = MPV) NEUTROPHIL % (test code = NT%) 52.8 % 56.0-77.0 L IMMATURE GRANULOCYTE % (test 0.4 % 0.0-2.0 N code = IG%) LYMPHOCYTE % (test code = LY%) 34.9 % 14.0-32.0 H MONOCYTE % (test code = MO%) 7.3 % 4.8-9.0 N EOSINOPHIL % (test code = EO%) 3.7 % 0.3-3.7 N BASOPHIL % (test code = BA%) 0.9 % 0.0-2.0 N NUCLEATED RBC % (test code = 0.0 % 0-0 N NRBC%) NEUTROPHIL # (test code = NT#) 3.72 x10 3/uL 2.0-7.6 N IMMATURE GRANULOCYTE # (test 0.03 x10 3/uL 0.00-0.03 N code = IG#) LYMPHOCYTE # (test code = LY#) 2.45 x10 3/uL 1.0-3.8 N MONOCYTE # (test code = MO#) 0.51 x10 3/uL 0.1-0.8 N EOSINOPHIL # (test code = EO#) 0.26 x10 3/uL 0.0-0.2 H BASOPHIL # (test code = BA#) 0.06 x10 3/uL 0.0-0.2 N NUCLEATED RBC # (test code = 0.00 x10 3/uL 0.0-0.1 N NRBC#) MANUAL DIFF REQUIRED (test code NO = MDIFF) TROPONIN-I [id number] 13:43:00 Test Item Value Reference Range Interpretation Comments TROPONIN-I RAPID 0.00 ng/mL 0.00-0.08 N Performed b y certified (test code = unisaw operator at [facility]) Ctr Negative: < = 0.08 Positive: >= 0. 09An elevated tropon in value alone is not benavidez fficient todiagnose a my ocardial infarction. Rat her, the patient sclinic al presentation (h istory, physical exam) and ECGshould be us ed in conjunction wit h troponin in thediagnosti c evaluation of s uspected myocardial infa rction. Aserial samplin g protocol is recommended to facilitate the identification of temporal changes in trop onin levels characteristic of [place].
--- NOTE | 2022-03-27 14:50 | ER ---
Nurse's Notes [facility] Name: Bianca Padron Age: 31 yrs Sex: Female : 1990 Arrival Date: 03/27/2022 Time: 12:10 Bed DIS14 Private MD: Diagnosis: Diarrhea, unspecified Presentation: 03/27 12:49 Chief complaint: Patient states: Exposed to fiberglass 1 week ago and has since had ss diarrhea and cramping. Coronavirus screen: Client denies travel out of the [place] in the last 14 days. Ebola Screen: Patient denies exposure to infectious person. Patient denies travel to an Ebola-affected area in the 21 days before illness onset. Initial Sepsis Screen: Does the patient meet any 2 criteria? No. Patient's initial sepsis screen is negative. Does the patient have a suspected source of infection? No. Patient's initial sepsis screen is negative. Risk Assessment: Do you want to hurt yourself or someone else? Patient reports no desire to harm self or others. Onset of symptoms was March 27, 2022. 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 - Social history:: Smoking status: Patient denies any tobacco usage or history of. Screenin:15 Abuse screen: Denies threats or abuse. Denies injuries from another. Nutritional hb screening: No deficits noted. Tuberculosis screening: No symptoms or risk factors identified. Fall Risk None identified. Assessment: 13:14 General: Appears in no apparent distress. Behavior is appropriate for age. Neuro: Level hb of Consciousness is awake, alert, obeys commands, Oriented to person, place, time, situation. Cardiovascular: Patient's skin is warm and dry. Respiratory: Respiratory effort is even, unlabored, Respiratory pattern is regular, symmetrical. Vital Signs: 12:49 BP 117 / 84; Pulse 61; Resp 16; Temp 98.1; Pulse Ox 99% ; Weight 68.04 kg; Height 5 ft. ss 1 in. (154.94 cm); Pain 0/10; 12:49 Body Mass Index 28.34 (68.04 kg, 154.94 cm) ED Course: 12:10 Patient arrived in ED. as 12:50 Triage completed. ss 12:51 Arm band placed on right wrist. ss 13:04 Damien Pink PA is PHCP. [facility] 13:04 Kingsley Harper MD is Attending Physician. [facility] 13:15 Patient has correct armband on for positive identification. hb 13:18 Giulia Franco, RN is Primary Nurse. hb 15:08 No provider procedures requiring assistance completed. Patient did not have IV access hb during this emergency room visit. Administered Medications: No medications were administered Medication: 13:19 VIS not applicable for this client. hb Outcome: 14:49 Discharge ordered by . [facility] 15:08 Discharged to home ambulatory. hb 15:08 Condition: stable 15:08 Discharge instructions given to patient, Instructed on discharge instructions, follow up and referral plans. medication usage, Demonstrated understanding of instructions, follow-up care, medications. 15:08 Patient left the ED. hb Signatures: Damien Pink PA PA jmm Martinez, Amelia as Smirch, Shelby, RN RN Giulia Franco, DAKOTA RN hb Corrections: (The following items were deleted from the chart) 13:04 12:49 Resp 16bpm; 68.04 kg; Height 5 ft. 1 in.; BMI: 28.3; Pain 0/10; [facility] 13:11 12:49 Acuity: EVELYN 3 ss
--- NOTE | 2022-03-27 14:50 | EDPHYS ---
Physician Documentation [facility] Name: Bianca Padron Age: 31 yrs Sex: Female : 1990 Arrival Date: 03/27/2022 Time: 12:10 Bed DIS14 Private MD: ED Physician Kingsley Harper HPI: 03/27 13:10 This 31 yrs old Female presents to ER via Ambulatory with complaints of jmm Diarrhea, Abdominal Pain. 13:10 The patient presents to the emergency department with diarrhea, abdominal pain. Onset: jmm The symptoms/episode began/occurred gradually, 1 week(s) ago. Possible causes: unknown. The symptoms are aggravated by nothing. The symptoms are alleviated by nothing. Is a 31-year-old female with no chronic medical conditions that presents to the emergency department with complaints of abdominal pain and diarrhea beginning approximately 1 week ago. Multiple household members have similar symptoms. Patient is concerned this may be due to insulation exposure. Denies fever. Denies vomiting.. 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 - Social history:: Smoking status: Patient denies any tobacco usage or history of. ROS: 13:10 Constitutional: Negative for fever, chills, and weight loss, Cardiovascular: Negative jmm for chest pain, palpitations, and edema, Respiratory: Negative for shortness of breath, cough, wheezing, and pleuritic chest pain. 13:10 Abdomen/GI: Positive for abdominal pain. 13:10 All other systems are negative. Exam: 13:10 Constitutional: This is a well developed, well nourished patient who is awake, alert, jmm and in no acute distress. Head/Face: atraumatic. Eyes: EOMI, no conjunctival erythema appreciated ENT: Moist Mucus Membranes Neck: Trachea midline, Supple Chest/axilla: Normal chest wall appearance and motion. Cardiovascular: Regular rate and rhythm. No edema appreciated Respiratory: Normal respirations, no respiratory distress appreciated 13:10 Back: Normal ROM Skin: General appearance color normal MS/ Extremity: Moves all extremities, no obvious deformities appreciated, no edema noted to the lower extremities Neuro: Awake and alert Psych: Behavior is normal, Mood is normal, Patient is cooperative and pleasant 13:10 Abdomen/GI: Inspection: abdomen appears normal, Bowel sounds: normal, Palpation: soft, nontender, in all quadrants. Vital Signs: 12:49 BP 117 / 84; Pulse 61; Resp 16; Temp 98.1; Pulse Ox 99% ; Weight 68.04 kg; Height 5 ft. ss 1 in. (154.94 cm); Pain 0/10; 12:49 Body Mass Index 28.34 (68.04 kg, 154.94 cm) ss MDM: 13:10 Patient medically screened. [facility] 14:49 Data reviewed: vital signs, nurses notes. Counseling: I had a detailed discussion with anderz the patient and/or guardian regarding: the historical points, exam findings, and any diagnostic results supporting the discharge/admit diagnosis, lab results, the need for outpatient follow up, to return to the emergency department if symptoms worsen or persist or if there are any questions or concerns that arise at home. 15:42 ED course: Patient is alert nontoxic in appearance in NAD. Abdomen is soft. I do not jmm currently suspect acute appendicitis. Most likely viral. Patient advised follow-up PCP otherwise given strict return precautions. Patient understood and agrees to plan of care.. 03/27 13:11 Order name: Flu; Complete Time: 14:15 [facility] Administered Medications: No medications were administered Disposition Summary: 03/27/22 14:49 Discharge Ordered Location: Home [facility] Condition: Stable [facility] Diagnosis - Diarrhea, unspecified [facility] Followup: [facility] - With: Private Physician - When: 2 - 3 days - Reason: Recheck today's complaints, Continuance of care, Re-evaluation by your physician Discharge Instructions: - Discharge Summary Sheet [facility] - Food Choices to Help Relieve Diarrhea, Adult [facility] Forms: - Medication Reconciliation Form [facility] - Thank You Letter [facility] - Antibiotic Education [facility] - Prescription Opioid Use [facility] - Work release form as Addendum: 03/29/2022 13:34 Co-signature as Attending Physician, Kingsley Harper MD I agree with the assessment and c gamez plan of care. Signatures: Dispatcher [employer] Kingsley Tobias MD MD cha Mickail, Joel, PA PA jmm Smirch, Kimberley, RN RN ss
[2022-03-27 15:29] VITALS: BP 117/84; TEMP 98.1; O2SAT 99
== END 2022-03-27 15:08 | disposition home or self-care (01) ==
LOC: ER 11:56
DX: R19.7 Diarrhea, unspecified (principal)
CPT/HCPCS: 87804; 99281

== ENCOUNTER 2022-12-04 19:44 | Emergency (ER) | payer OTHER ==
--- OUTSIDE RECORDS SUMMARY | 2022-12-04 19:48 | XMS REPORT | Continuity of Care Document ---
:1990 Author Organization [facility] t Address [address] [place] [address] Care Team Providers Name Role Phone Asked, No Pcp Primary Care Physician Unavailable PEDRO PABLO CARABALLO Attending Clinician Unavailable Matthias Albarado PA-C Attending Clinician Pedro Pablo Caraballo MD Attending Clinician Pob, [facility] Main Attending Clinician Unavailable Only, Adc Test Attending Clinician Unavailable Doctor Unassigned, [place] Attending Clinician Unavailable MOOKIE Attending Clinician Unavailable Ramsey Yadav DO Attending Clinician Mary Lou Herman MD Attending Clinician Galle PERL DEVELOPER, Micah Attending Clinician 2, [facility] Attending Clinician Unavailable Room, [facility] Attending Clinician Unavailable MATTHIAS ALBARADO Attending Clinician Unavailable Nurse, [facility] Attending Clinician Unavailable Princess Mao MD Attending Clinician PRINCESS MAO Attending Clinician Unavailable PRINCESS MAO Attending Clinician Unavailable LUCRETIA ROBERTS Attending Clinician Unavailable Ultrasound, Ang[facility] Attending Clinician Unavailable Lucretia Roberts MD Attending Clinician Court Shin MD Attending Clinician [phone] Attending Clinician Unavailable Vivian Carey MD Attending Clinician VIVIAN CAREY Attending Clinician Unavailable Miguel A DUNCAN, Yancy Attending Clinician Unavailable EVIE KEEN Attending Clinician Unavailable Lori COPELAND, Chago Attending Clinician PEDRO PABLO CARABALLO Admitting Clinician Unavailable Pedro Pablo Caraballo MD Admitting Clinician MOOKIE Admitting Clinician Unavailable Payers Payer Name Policy Type Policy Number Effective Date Expiration Date Donn lainez [facility] [id number] 2020 [facility] MEDICAID 00:00:00 [facility] P [id number] [facility] - MANAGED [place]ICA[place] - [id number] WOMEN'S HEALTH PROGRAM (MEDICAID) Problems Condition Condition Condition Status Onset Resolution Last Treating Co mments Source Name Details Category Date Date Treatment Clinician Date Status Status Disease Active Univers post post 503 [place] of bilateral [place] salping[place] salpingect 00 Me dical carmita carmita Branch Encounter Encounter Disease Active Overview: Univers for tubal for tubal 406 Formattin i ty of ligation ligation 00:00: g of this Zeb as 00 note Medical might be Branch different from the original. Added automatic ally from request for surgery [id number] Encounter Encounter Disease Active Uni vers for tubal for tubal 308 ity of ligation ligation 00:00: [place] counseling counseling 00 Me dical Branch History of History of Disease Active U nivselena 2019 01-08 it y of coronaviru [place]aviru [place] 00 Medi carlitos (COVID-19) (COVID-19) Br anch Obesity Obesity Disease Active Univers (BMI (BMI 7-27 ity of 30-39.9) 30-39.9) 00:00: [address] Allergies, Adverse Reactions, Alerts Allergy Allergy Status Severity Reaction(s) Onset Inactive Treating Comm ents Source Name Type Date Date Clinician No Known DA Active U 2016-05 [facility] 2[facility]08 Clear Allergie 00:[place]: [place] [address] [place] [address] FISH DA Active ND 2014-05 [facility] STICKS 0-18 Clear 00:00: [address] NO KNOWN Drug Active Univers ALLERGIE Class ity of S [facility] Social History Social Habit Start Date Stop Date Quantity Comments Source ASSERTION 2017-06-19 [facility] Sexual orientation [facility] Exposure to 2021-08-29 2021-09-08 Not sure [facility] [place]-CoV-2 (event) 00:00:00 09:32:00 [facility] Tobacco use and 2020-10-22 2020-10-22 Never used Universit y of exposure 00:00:00 00:00:00 [facility] History of Social 2018-03-27 2018-03-[address] function 00:00:00 00:00:00 Hospital Alcohol intake 2017-08-10 2017-08-10 Current [facility] 00:00:00 00:00:00 non-drinker of Hospital alcohol (finding) Sex Assigned At [birth year] [facility] 00:00:00 00:00:00 Hospital Smoking Status Start Date Stop Date Source Never smoker [facility] Medications Ordered Filled Start Stop Current Ordering Indication Dosage Frequency Signature Comments Components Source Medication Medication Date Date Medication? Clinician (SIG) Name Name cephALEXin 2021- No [id number] 500mg Take 1 Univers 500 mg 09-1012 capsule by ity of capsule 00:00: 04:59 mouth 4 [place] 00 :00 (four) Medical times Branch daily for 7 days. lactated Yes 1000mL at 100 Unive rs ringers IV 5-03 mL/hr, ity of infusion 19:00: 1,000 mL, [place] 1,000 mL 00 IV Medical Infusion, Branch CONTINUOUS , Starting on Wed09/09/21 at 1400, Until Discontinu ed, Routine, PACU HYDROcodone 2021-0 2021- No 1{tbl} 1 tablet, Univers -acetaminop 5-03 05-03 Oral, ity of hen (NORCO 19:00: 19:09 ONCE, 1 Zeb as 5) 5-325 mg 00 :00 dose, On Medi carlitos tablet 1 Wed09/09/21 Branc h tablet at 1400, Routine, PACU HYDROcodone 2021-0 2021- No 1{tbl} 1 tablet, Univers -acetaminop 5- 05-03 Oral, ity of hen (NORCO 19:00: 19:09 ONCE, 1 [place] as 5) 5-325 mg 00 :00 dose, On Medi carlitos tablet 1 Wed09/09/21 Branc h tablet at 1400, Routine, PACU lactated 2021- No 1000mL at 100 Univ ers ringers IV 5-03 05-03 mL/hr, ity of infusion 19:00: 22:07 1,000 mL, [place] as 1,000 mL 00 :32 IV Medical Infusion, Branch CONTINUOUS , Starting on Wed09/09/21 at 1400, Until Wed09/09/21 at 1707, Routine, PACU HYDROmorphO 0 Yes .2mg 0.2 mg, Uni vers ne [...] ed, Routine, Pain (scale 4-6), PACU ondansetron 0 Yes 4mg 4 mg, Slow Univers (ZOFRAN 09-09 IV Push, ity of (PF)) 18:55: PRN, 1 [place] injection 4 41 dose, Medical mg Starting Branch on Wed09/09/21 at 1355, Until Discontinu ed, Routine, Nausea and Vomiting (N/V), PACU HYDROmorphO 2021- No .2mg 0.2 mg, Un fiordaliza ne 09-09 Slow IV ity of (DILAUDID) 18:55: 22:07 Push, [place] injection 41 :32 Q5MIN PRN, Medi carlitos 0.2 mg 10 doses, Branch Starting on Wed09/09/21 at 1355, Until Wed09/09/21 at 1707, Routine, Pain (scale 7-10), PACU
Us e approved by (Faculty): PACU USE -ANESTHESI A SERVICE-HY DROMORPHON E INJECTIONS FENTanyl PF 2021- No 25ug 25 mcg, Un fiordaliza (SUBLIMAZE 09-09 Slow IV ity o f (PF)) 18:55: 22:07 Push, [place] injection 41 :32 Q5MIN PRN, Medi carlitos [...] PACU bupivacaine Yes PRN, Univer s (preserv 09-09 Starting ity of free) 0.5% 18:26: on Wed (SENSORCAIN 00 09/09/21 at [facility]) 0.5 1326, Branch % (5 mg/mL) Until injection Discontinu ed, Routine, Intra-op bupivacaine 2021- No PRN, Unive rs (preserv 09-09 Starting ity of free) 0.5% 18:26: 22:07 on Wed [place] (SENSORCAIN 00 :32 09/09/21 at [facility] E [facility]) 0.5 1326, Branch % (5 mg/mL) Until Tue injection 09/09/21 at 1707, Routine, Intra-op water for Yes PRN, Univers irrigation 09-09 Starting ity o f irrigation 18:25: on Wed [place] solution 00 09/09/21 at Medica l 1325, Branch Until Discontinu ed, Routine, Intra-op water for 202- No PRN, Univers irrigation 09-09 Starting ity of irrigation 18:25: 22:07 on Wed [place] solution 00 :32 09/09/21 at Medica l 1325, Branch Until 09/09/21 at 1707, Routine, Intra-op lactated 2021- No 1000mL at 42 Unive rs ringers IV 09-09 05-03 mL/hr, ity of infusion 16:00: 15:54 1,000 mL, [place] as 1,000 mL 00 :00 IV Medical Infusion, Branch ONCE, 1 dose, On Wed09/09/21 at 1100, Routine, DSU Pre-op lactated 2021- No 1000mL at 42 Unive rs ringers IV 5- 05-03 mL/hr, ity of infusion 16:00: 15:54 1,000 mL, [place] as 1,000 mL 00 :00 IV Medical Infusion, Branch ONCE, 1 dose, On Wed09/09/21 at 1100, Routine, DSU Pre-op ibuprofen Yes [id number] 600mg Take 1 Univers 600 mg 5-03 tablet by ity of tablet 00:00: mouth [place] 00 every 6 Medical (six) Branch hours as needed for Pain (scale 1-3) or Pain (scale 4-6). acetaminoph Yes [id number] 650mg Take 2 Univers en 5-03 tablets by ity of (TYLENOL) 00:00: mouth [place] 325 mg 00 every 6 Medical tablet (six) Branch hours as needed for Pain (scale 1-3) or Pain (scale 4-6). simethicone 2021-0 Yes [id number] 80mg Take 1 Univers 80 mg 5-03 tablet by ity of chewable 00:00: mouth [place] tablet 00 after Medical meals and Branch at bedtime. ibuprofen 2021-0 Yes [id number] 600mg Take 1 Univers 600 mg 5-03 tablet by ity of tablet 00:00: mouth [place] 00 every 6 Medical (six) Branch hours as needed for Pain (scale 1-3) or Pain (scale 4-6). acetaminoph 2021-0 Yes [id number] 650mg Take 2 Univers en 5-03 tablets by ity of (TYLENOL) 00:00: mouth [place] 325 mg 00 every 6 Medical tablet (six) Branch hours as needed for Pain (scale 1-3) or Pain (scale 4-6). simethicone 2021-0 Yes [id number] 80mg Take 1 Univers 80 mg 5-03 tablet by ity of chewable 00:00: mouth [place] tablet 00 after Medical meals and Branch at bedtime. ibuprofen 2021-0 Yes [id number] 600mg Take 1 Univers 600 mg 5-03 tablet by ity of tablet 00:00: mouth [place] 00 every 6 Medical (six) Branch hours as needed for Pain (scale 1-3) or Pain (scale 4-6). acetaminoph 2021-0 Yes [id number] 650mg Take 2 Univers en 5-03 tablets by ity of (TYLENOL) 00:00: mouth [place] 325 mg 00 every 6 Medical tablet (six) Branch hours as needed for Pain (scale 1-3) or Pain (scale 4-6). simethicone 2021-0 Yes [id number] 80mg Take 1 Univers 80 mg 5-03 [...] 7 days. Indication s: acute pain Yes [id number] 1{tbl} Take 1 Univers vitamin 3-09 tablet by ity of w/FA tablet 00:00: mouth [place] 00 daily. Medical Branch 2021- No [id number] 1{tbl} Take 1 Univers vitamin 3-09 05-03 tablet by ity of w/FA tablet 00:00: 00:00 mouth [place] 00 :00 daily. Medical Branch 2021- No [id number] 1{tbl} Take 1 Univers vitamin 3-09 05-03 tablet by ity of w/FA tablet 00:00: 00:00 [place] 00 :00 daily. [facility] Vital Signs Vital Name Observation Time Observation Value Comments Source Systolic blood 2021-09-09 19:35:00 107 mm[facility]Hg[facility] Diastolic blood 2021-09-09 19:35:00 70 mm[Hg] [facility] Heart rate 2021-09-09 19:30:00 60 /min [facility] Respiratory rate 2021-09-09 19:30:00 12 /min [facility] Oxygen saturation in 2021-09-09 19:30:00 99 /min [facility] Arterial blood by [facility] Pulse oximetry Branch Body temperature 2021-09-09 18:42:00 36.22 Piedad [facility] Body height 2021-08-26 15:28:00 154.9 cm [facility] Body weight 2021-08-26 15:28:00 64.4 kg Universi ty of [facility] BMI 2021-08-26 15:28:00 26.84 kg/m2 Universi ty of [facility] Systolic blood 2021-09-09 19:15:00 107 mm[Hg] Univer sity of pressure [facility] Diastolic blood 2021-09-09 19:15:00 57 mm[Hg] [facility] Heart rate 2021-09-09 19:15:00 64 /min Universi ty of [facility] Respiratory rate 2021-09-09 19:15:00 20 /min [facility] Oxygen saturation in 2021-09-09 19:15:00 100 /min [facility] Arterial blood by [facility] Pulse oximetry Branch Body temperature 2021-09-09 18:42:00 36.22 Piedad [facility] Body height 2021-08-26 15:28:00 154.9 cm Universi ty of [facility] Body weight 2021-08-26 15:28:00 64.4 kg Universi ty of [facility] BMI 2021-08-26 15:28:00 26.84 kg/m2 Universi ty of [facility] Systolic blood 2021-09-08 14:41:00 112 mm[Hg] Univer sity of [facility] Diastolic blood 2021-09-08 14:41:00 76 mm[Hg] [facility] Heart rate 2021-09-08 14:41:00 54 /min Universi ty of [facility] Body temperature 2021-09-08 14:41:00 36.72 Piedad [facility] Body weight 2021-09-08 14:41:00 64.501 kg Universi ty of [facility] BMI 2021-09-08 14:41:00 26.88 kg/m2 Universi ty [facility] Procedures Procedure Date / Time Performing Clinician Source Performed LAPAROSCOPIC 2021-09-09 17:34:00 Pedro Pablo Caraballo [place] [facility] [place] SALPINGECTOMY [facility] POCT TEST 2021-09-09 15:32:00 Ayesha Vasquez [facility] POCT TEST 2021-09-09 15:32:00 Ayesha Vasquez [facility] Plan of Care Planned Activity Planned Date Details Comments Source Future Scheduled 2022-10-24 COVID[facility] 11:18:08 (#1) [code = COVID-19 VACCINE (#1)] Future Scheduled 2022-10-24 [facility] Test 11:18:08 malignant neoplasm of cervix (procedure) [code = 714918752] Future Scheduled 2022-10-24 INFLUENZA VACCINE [facility] Test 11:18:08 [code = INFLUENZA VACCINE] Future Scheduled 2022-03-15 [facility] 01:39:57 VACCINES (1 of 3 - 3-dose series) [code = HEPATITIS B VACCINES (1 of 3 - 3-dose series)] Future Scheduled 2022-03-15 [facility] 01:39:57 (#1) [code = COVID-19 VACCINE (#1)] Future Scheduled 2022-03-15 [facility] Test 01:39:57 malignant neoplasm of cervix (procedure) [code = 878193006] Future Scheduled 2022-03-15 INFLUENZA VACCINE [facility] Test 01:39:57 [code = INFLUENZA VACCINE] Encounters Start End Encounter Admission Attending Care Care Encounter Source Date/Time Date/Time Type Type Clinicians Facility Department ID 2021-09-03 Outpatient PEDRO PABLO SHEPHERD [facility] [facility] TRANSCRIBER [id number] [facility] 2021-02-20 Outpatient [facility] [id number] [facility] 21:47:45 [id number] [facility] 2021-09-29 2021-09-29 [facility] [id number] Univers 08:45:00 [facility] 2021-09-10 2021-09-10 Case Per [place] [id number] Univers 00:00:00 00:00:00 Management Matthias HANDLEY [id number] ity [facility] [id number] Patti BUTLER [phone] [address] 2021-09-09 2021-09-09 Outpatient PEDRO PABLO SHEPHERD [place] [address] TRANSCRIBER [id number] Univers 10:16:00 14:50:00 ity of [facility] 2021-09-09 2021-09-09 Hospital Pedro Pablo Caraballo [facility] [id number] Univers 10:16:00 14:50:00 Encounter Ramiro SHERLYNTON [id number] ity of [place] [id number] [place] SURGICAL [id number] [facility] 071 Branch 2021-09-09 2021-09-09 Surgery Pedro Pablo Caraballo [facility] [id number] Univers 12:35:00 14:16:00 Cam [place] [id number] i ty of [place] [id number] [place] SURGICAL [id number] [facility] 020 Branch 2021-09-08 2021-09-08 Office Pedro Pablo Caraballo [facility] [id number] Univers 09:45:00 09:57:31 Visit Ramiro [place] [id number] i ty of [place] [id number] [place] PROFESSIO [id number] Ks dical NAL 134 [facility] 2021-09-08 2021-09-08 Outpatient R PEDRO PABLO CARABALLO [facility] [id number] Univers 09:45:00 09:45:00 ity of [facility] 2021-09-08 2021-09-08 Rock Singer Srinivasa, [place] Main [facility] [id number] Univers 09:00:00 09:15:00 Visit Pedro Pablo CaraballoTON [id number] ity of [place] [id number] [place] PROFESSIO [id number] Ks dical NAL 353 [facility] 2021-09-08 2021-09-08 Outpatient R PEDRO PABLO CARABALLO [facility] [id number] Univers 09:00:00 09:00:00 ity of [facility] 2021-09-08 2021-09-08 Laboratory Only, Adc Test [facility] 1.2.840. [id number] Univers 08:45:00 09:00:00 Only Pedro Pablo CaraballoTON [id number] ity of [place] [id number] C[place] [id number] [facility] [address] [place] 2021-09-08 2021-09-08 Orders Doctor KADI [id number] Univers 00:00:00 00:00:00 Only Unassigned, KACIE [id number] ity of [place] [facility] [id number] Zeb as [id number] [facility] [address] [place] 2021-09-04 2021-09-04 Outpatient R ILYA PEDRO PABLO [facility] [id number] Univers 09:45:00 09:45:00 ity of [facility] 2021-09-04 2021-09-04 Telephone Ilya Pedro Pablo [facility] [id number] Univers 00:00:00 00:00:00 Cam [place] [id number] i ty of [place] [id number] [place] PROFESSIO [id number] Ks dical NAL [address] [place] [address] 2021-08-29 2021-08-29 Outpatient KIM_MACHELLE [facility] [id number] [place] 11:52:00 11:52:00 SSA 25184 da [facility] 2021-08-13 2021-08-13 Outpatient R PEDRO PABLO CARABALLO [facility] [id number] Univers 11:15:00 11:34:52 ity of [facility] 2021-08-13 2021-08-13 Routine Ilya Pedro Pablo [facility] [id number] Univers 11:15:00 11:34:52 Ramiro HANDLEY [id number] ity of Visit [place] [id number] PROFESS[place] [id number] Ks dical NAL 134 [facility] 2021-08-06 2021-08-06 Telephone Pedro Pablo Caraballo [facility] [id number] Univers 00:00:00 00:00:00 Cam [place] [id number] i ty of [place] 4.2.7.2.[place] PROF[place] [id number] [address] 2021-07-28 2021-07-28 Orders Doctor KADI [id number] [id number] Univers 00:00:00 00:00:00 Only Unassigned, KACIE [id number] ity of [place] [facility] [id number]eb [id number] [facility] 00[address] [place] 2021-07-22 2021-07-22 Telephone Pedro Pablo Caraballo [facility] 1.2.840.114 [id number] Univers 00:00:00 00:00:00 Cam [place] [id number] i ty of [place] [id number] PROFESS[place] [id number] [address] 2021-07-21 2021-07-21 Outpatient R [facility] [id number] Univers 08:00:00 08:00:00 ity of [facility] 2021-07-18 2021-07-18 Telephone Pedro Pablo Caraballo [facility] 1.2.840.114 [id number] Univers 00:00:00 00:00:00 Cam [place] [id number] i ty of [place] [id number] PROFESS[place] [id number] [address] 2021-07-17 2021-07-17 Outpatient R [facility] [id number] Univers 08:00:00 08:00:00 ity of [facility] 2021-07-15 2021-07-16 Hospital Ramsey Yadav [facility] 1.2.840.1 [id number] Univers 09:07:00 22:23:00 Encounter Mary Lou Herman [id number] ity of [facility] [id number] [facility] [id number] [facility] [address] [place] 2021-07-16 2021-07-16 [facility] 1.2.840.114 [id number] Univers 20:03:25 20:03:25 Event Micah HANDLEY [id number] i ty [facility] [id number] [id number] [facility] [address] [place] 2021-07-15 2021-07-15 Telephone Scarlett Caraballoen [facility] 1.2.840.114 [id number] Univers 00:00:00 00:00:00 Ramiro HANDLEY 350.1.13.10 i ty of [place] 4[place]2.[place].2.[place] PROF[place] [id number] Ks dical NAL 134 [facility] 2021-07-14 2021-07-14 Rock Singer 2, [facility] [id number] Univers 09:45:00 10:00:00 Visit Ilya Pedro Pablo [place] [id number] ity of [place] [id number] PROFESS[place] [id number] Ks dical NAL 353 [facility] 2021-07-14 2021-07-14 Routine Room, [facility] 1.2.840.1 [id number] Univers 08:00:00 09:16:13 Scarlett Caraballojovan [place] 350.1.13.10 ity of Visit [place] [id number] PROFESS[place] [id number] Ks dical NAL 134 [facility] 2021-07-14 2021-07-14 Outpatient R PEDRO PABLO CARABALLO [facility] [id number] Univers 08:00:00 09:16:13 ity of [facility] 2021-07-14 2021-07-14 Outpatient R PEDRO PABLO CARABALLO [facility] [id number] Univers 08:00:00 09:16:13 ity of [facility] 2021-07-14 2021-07-14 Orders Doctor KADI 1.2.840.114 [id number] Univers 00:00:00 00:00:00 Only Unassigned, KACIE [id number] ity of [place] [facility] [id number]eb [id number] [facility] [address] [place] 2021-07-10 2021-07-10 Rock Singer 2, [facility] 1.2.840.114 [id number] Univers 09:30:00 09:45:00 Visit Pedro Pablo Caraballo [id number] ity of [place] 4.2.7.2.[place] PROFESSIO [id number] Ks dical NAL 353 [facility] 2021-07-10 2021-07-10 Outpatient R PEDRO PABLO CARABALLO [facility] [id number] Univers 09:30:00 09:30:00 ity of [facility] 2021-07-10 2021-07-10 Routine Room, [facility] 1.2.840.1 [id number] Univers 08:00:00 09:15:03 Pedro Pablo Caraballo Ramiro HANDLEY [id number] ity of Visit [place] [id number] PROFESS[place] [id number] K[place] dical NAL [address] [place] [address] 2021-07-07 2021-07-07 Outpatient R PER [facility] [id number] Univers 08:00:00 08:58:57 MATTHIAS ity of [facility] 2021-07-07 2021-07-07 Routine Room, [facility] 1.2.840.1 [id number] Univers 08:00:00 08:58:57 RickeydaianaMagi brooksmarie [place] [id number] ity of Visit [place] [id number] PROFESS[place] [id number] [address] 2021-07-07 2021-07-07 Outpatient R [facility] [id number] Univers 08:00:00 08:00:00 ity of [facility] 2021-07-07 2021-07-07 Refill Pedro Pablo Caraballo [facility] [id number] Univers 00:00:00 00:00:00 Cam [place] [id number] i ty [facility] 4.2.7.2.[place] [id number] Ks dical NAL 134 [facility] 2021-07-03 2021-07-03 Case Pedro Pablo Caraballo [facility] [id number] [id number] Univers 00:00:00 00:00:00 Management Cam [place] [id number] ity of [place] 4.2.7.2.[place] PROFESS[place] [id number] Ks dical NAL 134 [facility] 2021-07-02 2021-07-02 Outpatient R PER [facility] [id number] Univers 13:30:00 15:07:47 MATTHIAS ity of [facility] 2021-07-02 2021-07-02 [facility] [id number] Univers 13:30:00 15:07:47 Matthias [place] [id number] ity of Visit [place]2.[place].2.[place] PROF[place] [id number] Ks dical NAL 134 [facility] 2021-06-30 2021-06-30 Outpatient R PEDRO PABLO CARABALLO [facility] [id number] Univers 10:00:00 11:08:47 ity of [facility] 2021-06-30 2021-06-30 Routine Room, [facility] 1.2.840.1 [id number] Univers 10:00:00 11:08:47 Pedro Pablo Caraballo 350.1.13.10 ity of Visit [id number] PROFESS[place] [id number] Ks dical NAL 134 [facility] 2021-06-26 2021-06-26 Nurse Nurse, [facility] 1.2.840.114 [id number] Univers 08:00:00 09:04:04 Visit Matthias [place]bar[place] [id number] [facility]y [facility] 4.2.7.2.[place] [id number] Ks dical NAL 134 [facility] 2021-06-26 2021-06-26 Rock Singer 2, [facility] 1.2.840.114 [id number] Univers 08:30:00 08:30:07 Visit Matthias [place] [id number] ity [facility] 4.2.7.2.[place] [phone] [place] dical NAL 353 [facility] 2021-06-26 2021-06-26 [facility] [id number] Univers 08:00:00 08:00:00 MATTHIAS ity of [facility] 2021-06-26 2021-06-26 Telephone Pedro Pablo Caraballo [facility] 1.2.840.114 [id number] Univers 00:00:00 00:00:00 Cam [place] 350.1.13.10 i ty [facility] [place] [phone] K[place] dical NAL [address] [place] [address] 2021-06-23 2021-06-23 Telephone Pedro Pablo Caraballo [facility] 1.2.840.114 [id number] Univers 00:00:00 00:00:00 Cam [place] 350.1.13.10 i ty [facility] [place] [phone] [address] 2021-06-22 2021-06-22 Case Pedro Pablo Caraballo [facility] 1.2.143.664 [id number] Univers 00:00:00 00:00:00 Management Cam [place] 350.1.13.10 ity of [place] [phone] [address] 2021-06-19 2021-06-19 Outpatient R ILYA PEDRO PABLO [facility] [id number] Univers 11:15:00 12:11:28 ity of [facility] 2021-06-19 2021-06-19 Routine Pedro Pablo Caraballo [facility] 1.2.144.071 [id number] Univers 11:15:00 12:11:28 Cam [place] 350.1.13.10 ity of [place].2.[place] [phone] Ks dic[address] 2021-06-18 2021-06-18 Outpatient R ILYA PEDRO PABLO [facility] [id number] Univers 09:00:00 09:00:00 ity of [facility] 2021-06-16 2021-06-16 Nurse Nurse, [facility] 1.2.840.114 [id number] Univers 09:00:00 09:12:50 Visit Caraballo, Pedro Pablojovan [place] 350.1.13.10 ity of [place] [phone] Ks dical NAL 134 [facility] 2021-06-16 2021-06-16 Outpatient R ILYA PEDRO PABLO [facility] [id number] Univers 09:00:00 09:00:00 ity [facility] 2021-06-13 2021-06-13 Outpatient R [facility] [id number] Univers 08:00:00 08:00:00 ity of [facility] 2021-06-12 2021-06-12 Outpatient R [facility] [id number] Univers 08:00:00 08:00:00 ity [facility] 2021-06-05 2021-06-05 [facility] [id number] Univers 10:00:00 10:30:16 MATTHIAS itrajinder [facility] 2021-06-05 2021-06-05 [facility] 1.2.890.013 [id number] Univers 10:00:00 10:30:16 Matthias [place] 350.1.13.10 ity of [place] 4[place].7.[place] [phone] Ks dic[address] 2021-06-05 2021-06-05 Outpatient R PER [facility] [id number] Univers 08:00:00 08:00:00 [facility] 2021-06-05 2021-06-05 Orders Doctor WALLIS 1.2.840.114 [id number] Univers 00:00:00 00:00:00 Only Unassigned, KACIE 350.1.13.10 ity of [place] [facility] 4.2.7.2.686 Zeb as [phone] [address] 2021-05-29 2021-05-29 Outpatient R ILYA PEDRO PABLO [facility] [id number] Univers 08:00:00 08:14:27 ity [facility] 2021-05-29 2021-05-29 Nurse Nurse, [facility] 1.2.840.114 [id number] Univers 08:00:00 08:14:27 Visit Pedro Pablo CaraballoTON 350.1.13.10 ity of [place] [phone] Ks dical NAL [address] [place] [address] 2021-05-22 2021-05-22 [facility] [id number] Univers 08:00:00 08:15:05 ity of [facility] 2021-05-22 2021-05-22 Nurse Nurse, [facility] 1.2.840.114 [id number] Univers 08:00:00 08:15:05 Visit Pedro Pablo CaraballoTON 350.1.13.10 ity of [place] 4.[place].7.2.[place] [phone] Ks dical NAL [address] [place] [address] 2021-05-16 2021-05-16 Telephone Ilya [facility] 1.2.840.114 [id number] Univers 00:00:00 00:00:00 Ramiro [place] 350.1.13.10 i ty of [place] 4.2.7.2.[place] [phone] Ks dical NAL [address] [place] [address] 2021-05-15 2021-05-15 Outpatient R PEDRO PABLO CARABALLO [facility] [id number] Univers 08:45:00 08:45:00 ity of [facility] 2021-05-15 2021-05-15 Rock Singer 2, [facility] 1.2.840.114 [id number] Univers 08:45:00 08:45:00 Visit Pedro Pablo CaraballoTON 350.1.13.10 ity of [place] 4.[place].2.[place] [phone] Ks dical NAL [address] [place] [address] 2021-05-15 2021-05-15 Nurse Nurse, [facility] 1.2.840.114 [id number] Univers 08:00:00 08:18:10 Visit Pedro Pablo Caraballo [place] 350.1.13.10 ity of [place] 4.2.7.2.[place] [id number] Ks dical NAL [address] [place] [address] 2021-05-08 2021-05-08 Outpatient R PEDRO PABLO CARABALLO [facility] [id number] Univers 11:15:00 11:55:55 ity of [facility] 2021-05-08 2021-05-08 Routine Pedro Pablo Caraballo [facility] 1.2.954.206 [id number] Univers 11:15:00 11:55:55 Cam [place] 350.1.13.10 ity of [place] 4.2.7.2.[place] [phone] Ks dical NAL [address] [place] [address] 2021-05-08 2021-05-08 Outpatient R PEDRO PABLO CARABALLO [facility] [id number] Univers 11:15:00 11:15:00 ity of [facility] 2021-05-01 2021-05-01 Outpatient R PEDRO PABLO CARABALLO [facility] [id number] Univers 08:00:00 08:15:58 ity of [facility] 2021-05-01 2021-05-01 Nurse Nurse, [facility] 1.2.840.114 [id number] Univers 08:00:00 08:15:58 Visit Pedro Pablo Caraballo Ramiro [place] 350.1.13.10 ity of [place] 4[place]2.7.2.[place] [phone] Ks dical NAL [address] [place] [address] 2021-04-30 2021-04-30 Case Pedro Pablo Caraballo [facility] 1.2.458.936 [id number] Univers 00:00:00 00:00:00 Management Cam [place] 350.1.13.10 ity of [facility] 4.2.7.2.[place] [phone] Ks dical NAL [address] [place] [address] 2021-04-30 2021-04-30 Orders Doctor KADI 1.2.840.114 [id number] Univers 00:00:00 00:00:00 Only Unassigned, KACIE 350.1.13.10 ity of [place] [facility] 4.2.7.2.686 Zeb as [phone] [address] 2021-04-24 2021-04-24 Nurse Nurse, [facility] 1.2.840.114 [id number] Univers 09:00:00 09:20:06 Visit AllanPrincess [place] 350.1.13.10 ity of [facility] 4.2.7.2.[place] [id number] Ks dic[address] 2021-04-24 2021-04-24 Outpatient R ALLANPRINCESS [facility] [id number] Univers 09:00:00 09:00:00 ALLAN PRINCESS [facility] 2021-04-17 2021-04-17 Nurse Nurse, [facility] 1.2.840.114 [id number] Univers 07:54:09 08:09:09 Visit Pedro Pablo Caraballo [place] 350.1.13.10 ity of [facility] 4.2.7.2.[place] [phone] [address] 2021-04-17 2021-04-17 Outpatient R [facility] [id number] Univers 08:00:00 08:00:00 ity [facility] 2021-04-17 2021-04-17 Outpatient R PEDRO PABLO CARABALLO [facility] [id number] Univers 08:00:00 08:00:00 ity [facility] 2021-04-17 2021-04-17 Case Pedro Pablo Caraballo [facility] 1.2.209.746 [id number] Univers 00:00:00 00:00:00 Management Ramiro [place] 350.1.13.10 ity of [facility] 4.2.7.2.[place] [phone] [address] 2021-04-16 2021-04-16 Case Pedro Pablo Caraballo [facility] 1.2.022.985 [id number] Univers 00:00:00 00:00:00 Management Cam [place] 350.1.13.10 ity of [facility] 4.2.7.2.[place] [phone] [address] 2021-04-16 2021-04-16 Orders Doctor W[place] 1.2.840.114 [id number] Univers 00:00:00 00:00:00 Only Unassigned, KACIE 350.1.13.10 ity of [place] [facility] 4.2.7.2.686 Zeb as [phone] [address] 2021-04-14 2021-04-14 Case Per [facility] 1.2.874.695 [id number] Univers 00:00:00 00:00:00 Management Matthias [place] 350.1.13.10 ity of [place] 4[place].2.[place] [phone] Ks dical [address] 2021-04-10 2021-04-11 Outpatient P MONISHA [facility] [id number] Univers 08:00:00 11:04:32 LUCRETIA cordoba [facility] 2021-04-10 2021-04-10 Routine Per [facility] 1.2.669.205 [id number] Univers 08:37:06 09:38:17 Matthias [place] 350.1.13.10 ity of [facility] 4.2.7.2.[place] [phone] Ks dic[address] 2021-04-10 2021-04-10 Outpatient R PER [facility] [id number] Univers 09:00:00 09:00:00 MATTHIAS cordoba [facility] 2021-04-10 2021-04-10 Rock Singer Ultrasound, [facility] 1.2 .840.114 [id number] Univers 07:54:36 08:24:36 Visit Princess Mao [employer] 350.1.13.10 ity of Lucretia Roberts [facility] 4.2.7.2.686 [place] MATERNAL [phone] [facility] ical & CHILD [address] [place] [address] 2021-04-02 2021-04-02 Nurse Nurse, [facility] 1.2.840.114 [id number] Univers 10:09:37 10:44:38 Visit Pedro Pablo Caraballo 350.1.13.10 ity of [place] 4[place]7.2.[place] [phone] Ks dic[address] 2021-04-02 2021-04-02 Outpatient R PEDRO PABLO CARABALLO [facility] [id number] Univers 10:00:00 10:44:38 ity of [facility] 2021-04-02 2021-04-02 Outpatient R PEDRO PABLO CARABALLO [facility] [id number] Univers 10:00:00 10:00:00 ity of [facility] 2021-03-31 2021-03-31 Telephone Ilya [facility] 1.2.840.114 [id number] Univers 00:00:00 00:00:00 Ramiro [place] 350.1.13.10 i ty of [place].2.[place] [phone] [address] 2021-03-27 2021-03-27 Outpatient R PEDRO PABLO CARABALLO [facility] [id number] Univers 14:00:00 09:25:41 ity [facility] 2021-03-27 2021-03-27 Nurse Nurse, [facility] 1.2.840.114 [id number] Univers 08:59:42 09:25:41 Visit Pedro Pablo Caraballo [place] 350.1.13.10 ity of [facility] 4.2.7.2.[place] [phone] [address] 2021-03-27 2021-03-27 Rock Singer Ultrasound, [facility] 1.2 .840.114 [id number] Univers 07:59:09 08:59:09 Visit Princess Mao [employer] 350.1.13.10 ity of MaryreCourt herrera [facility] 4.2.7.2 .686 [place] MATERNAL [phone] [facility] ical & CHILD [address] [place] [address] 2021-03-20 2021-03-20 Nurse Nurse, [facility] 1.2.840.114 [id number] Univers 09:02:31 09:43:57 Visit Pedro Pablo Caraballo [place] 350.1.13.10 ity of [facility] 4.2.7.2.[place] [phone] Me dical NAL [address] [place] [address] 2021-03-20 2021-03-20 Outpatient R [facility] [id number] Univers 09:00:00 09:00:00 ity of [facility] 2021-03-20 2021-03-20 Outpatient R PEDRO PABLO CARABALLO [facility] [id number] Univers 09:00:00 09:00:00 ity of [facility] 2021-03-13 2021-03-13 Rock Singer Ultrasound, [facility] 1.2 .840.114 [id number] Univers 07:59:06 08:29:06 Visit Princess Mao [employer] 350.1.13.[address] [facility] 4.2.7.2 .686 [place] MATERNAL [phone] Med ical & CHILD [address] [place] [address] 2021-03-13 2021-03-13 Outpatient P [facility] [id number] Univers 08:00:00 08:00:00 ity of [facility] 2021-03-13 2021-03-13 Outpatient P KIP [facility] [id number] Univers 08:00:00 08:00:00 [facility] 2021-03-12 2021-03-12 Routine Ilya Pedro Pablo [facility] 1.2.069.632 [id number] Univers 11:02:16 11:50:57 Cam [place] 350.1.13.10 ity of [place] 4.2.7.2.[place] [phone] Ks dical NAL [address] [place] [address] 2021-03-12 2021-03-12 Outpatient R SCARLETT CARABALLOEN [facility] [id number] Univers 11:00:00 11:50:57 ity [facility] 2021-03-03 2021-03-03 Telephone CaraballoPedro Pablo [facility] 1.2.840.114 [id number] Univers 00:00:00 00:00:00 Cam [place] 350.1.13.10 i ty of [place] 4.[place].7.2.[place] [phone] Ks dical nal [address] [place] [address] 2021-02-28 2021-02-28 Telephone Pedro Pablo Caraballo [facility] 1.2.840.114 [id number] Univers 00:00:00 00:00:00 Ramiro [place] 350.1.13.10 i ty of [place] 4.2.7.2.[place] [phone] [address] 2021-02-27 2021-02-27 Rock Singer Ultrasound, PedritoMfandrez [facility] 1.2 .840.114 [id number] Univers 07:56:39 08:30:02 Visit Princess Mao [employer] 350.1.13.10 ity of [facility] 4.2.7.2.686 Zeb [place] MATERNAL [phone] Med ical & CHILD [address] [place] [address] 2021-02-27 2021-02-27 Outpatient P [facility] [id number] Univers 08:00:00 08:00:00 ity [facility] 2021-02-11 2021-02-11 Routine Per [facility] 1.2.243.979 [id number] Univers 11:02:16 12:02:25 Matthias [place] 350.1.13.10 ity of Visit [place] 4.2.7.2.[place] Profess[place] [phone] [address] 2021-02-11 2021-02-11 Outpatient Brayden ALBARADO [facility] [id number] Univers 11:00:00 11:00:00 MATTHIAS [facility] 2021-02-06 2021-02-06 Outpatient Brayden ALBARADO [facility] [id number] Univers 11:00:00 11:00:00 MATTHIAS cordoba [facility] 2021-02-05 2021-02-05 Outpatient Brayden ALBARADO [facility] [id number] Univers 15:30:00 15:30:00 MATTHIAS [facility] 2021-02-05 2021-02-05 Orders Doctor WALLIS 1.2.840.114 [id number] Univers 00:00:00 00:00:00 Only Unassigned, KACIE 350.1.13.10 ity of [place] [facility] 4.2.7.2.686 [place]eb as [phone] [address] 2021-01-29 2021-01-29 Telephone Pedro Pablo Caraballo [facility] 1.2.840.114 [id number] Univers 00:00:00 00:00:00 Cam En[place] 350.1.13.10 i ty of [place] 4.2.7.2.[place] [phone] Ks dical nal [address] [facility] 2021-01-29 2021-01-29 Orders Doctor KADI 1.2.840.114 [id number] Univers 00:00:00 00:00:00 Only Unassigned, KACIE 350.1.13.10 ity of [place] [facility] 4.2.7.2.686 [place]eb as [phone] [address] 2021-01-24 2021-01-24 Case Pedro Pablo Carabalol [facility] 1.2.139.908 [id number] Univers 00:00:00 00:00:00 Management Ramiro [place] 350.1.13.10 ity of [place] 4.2.[place].2.[place] [phone] Ks dical nal [address] [facility] 2021-01-23 2021-01-23 Telephone Pedro Pablo Caraballo [facility] 1.2.840.114 [id number] Univers 00:00:00 00:00:00 Ramiro [place] 350.1.13.10 i ty of [place] 4.2.7.2.[place] [phone] Ks dical nal [address] [facility] 2021-01-20 2021-01-20 Rock Singer 2, Adc Lab [facility] 1.2.840.114 [id number] Univers 08:17:28 08:32:28 Visit Pedro Pablo Caraballo 350.1.13.10 ity of [place] 4.2.7.2.[place] [phone] Ks dical nal 353 [facility] 2021-01-20 2021-01-20 Outpatient R [facility] [id number] Univers 08:15:00 08:15:00 ity of [facility] 2021-01-20 2021-01-20 Telephone Pedro Pablo Caraballo [facility] 1.2.840.114 [id number] Univers 00:00:00 00:00:00 Cam [place] 350.1.13.10 i ty of [place] 4.2.7.2.[place] [phone] Ks dical nal [address] [facility] 2021-01-17 2021-01-17 Case Pedro Pablo Caraballo [facility] 1.2.330.889 [id number] Univers 00:00:00 00:00:00 Management Cam [place] 350.1.13.10 ity of [place] 4.2.7.2.[place] [phone] Ks dical nal [address] [facility] 2021-01-15 2021-01-15 Rock Singer 2, Adc Lab [facility] 1.2.840.114 [id number] Univers 08:12:17 08:27:17 Visit Pedro Pablo Caraballoton 350.1.13.10 ity of [place] 4.2.7.2.[place] [phone] Ks dical nal [address] [facility] 2021-01-15 2021-01-15 Outpatient R [facility] [id number] Univers 08:00:00 08:00:00 ity of [facility] 2021-01-15 2021-01-15 Case Rickeyjesica [facility] 1.2.735.949 [id number] Univers 00:00:00 00:00:00 Management Matthias [place] 350.1.13.10 ity of [place] 4.2.7.2.[place] [phone] Ks dical nal [address] [place] [address] 2021-01-08 2021-01-08 Initial Pedro Pablo Caraballo [facility] 1.2.840.114 [id number] Univers 13:42:33 14:58:57 Vivian Carey 350.1.13.10 ity of Visit [place] 4.2.7.2.[place] [phone] Ks dical nal [address] [facility] 2021-01-08 2021-01-08 Outpatient R ADSHYANNE, [facility] [id number] Univers 13:30:00 13:30:00 itrajinder [facility] 2021-01-08 2021-01-08 Orders Doctor WALLIS 1.2.840.114 [id number] Univers 00:00:00 00:00:00 Only Unassigned, KACIE 350.1.13.10 ity of [place] [facility] 4.2.7.2.686 Zeb as [phone] [facility] [facility] 2021-01-06 2021-01-06 Outpatient [facility] [id number] [id number] Univers 14:30:00 14:30:00 ity of [facility] 2020-12-26 2020-12-26 Outpatient R ILYA [facility] [id number] Univers 10:00:00 10:00:00 ity [facility] 2020-12-26 2020-12-26 Letter Yancy Grady 1.2.840.114 [id number] Univers 00:00:00 00:00:00 (Out) KACIE 350.1.13.10 it y of [facility] 4.2.7.2.686 [place]eb as [phone] [facility] 0[address] [facility] 2020-12-26 2020-12-26 Telephone Ilya [facility] 1.2.840.114 [id number] Univers 00:00:00 00:00:00 Ramiro Handley 350.1.13.10 i ty [facility] 4.2.7.2.[place] [phone] Ks dical nal [address] [facility] 2020-12-24 2020-12-24 Outpatient R LEONILA [facility] [id number] Univers 20:00:00 20:00:00 EVIE ity of [facility] 2020-12-07 2020-12-07 Rock Singer Srinivasa, [facility] 1.2.8 40.114 [id number] Univers 11:51:46 12:06:46 Visit Chago Sandoval 350.1.13.10 ity [facility] 4.2.7.2.[place] [phone] Ks dical nal [address] [facility] 2020-12-07 2020-12-07 Outpatient R [facility] [id number] Univers 11:45:00 11:45:00 ity of [facility] 2020-12-05 2020-12-05 Rock Singer 2, Adc Lab [facility] 1.2.840.114 [id number] Univers 11:59:19 12:14:19 Visit CaraballoScarlettjovan Handley 350.1.13.10 ity of [place] 4.2.7.2.[place] [phone] Ks dical [facility] [address] [facility] 2020-12-05 2020-12-05 Outpatient R [facility] [id number] Univers 11:45:00 11:45:00 ity of [facility] 2020-12-05 2020-12-05 Orders Doctor KADI 1.2.840.114 [id number] Univers 00:00:00 00:00:00 Only Unassigned, KACIE 350.1.13.10 ity of [place] [facility] 4.2.7.2.686 [place]eb as [phone] [address] 2020-12-03 2020-12-03 Rock Singer 2, Adc Lab [facility] 1.2.840.114 [id number] Univers 15:31:02 15:46:02 Visit Scarlett Caraballojovan Handley 350.1.13.10 ity of [place] 4.2.7.2.[place] [phone] [facility] [address] [facility] 2020-12-03 2020-12-03 Office [facility] 1.2.854.405 [id number] Univers 14:24:39 15:28:36 Visit Ramiro Handley 350.1.13.10 i ty of [place] 4.2.7.2.[place] [phone] Ks dical nal [address] [facility] 2020-12-03 2020-12-03 Outpatient R PEDRO PABLO CARABALLO [facility] [id number] Univers 14:30:00 14:30:00 ity [facility] 2020-11-20 2020-11-20 Orders Doctor KADI 1.2.840.114 [id number] Univers 00:00:00 00:00:00 Only Unassigned, KACIE 350.1.13.10 ity of [place] [facility] 4.2.7.2.686 [place]eb as [phone] [address] 2020-11-13 2020-11-13 [facility] 1.2.840.114 [id number] Univers 00:00:00 00:00:00 Matthias Handley 350.1.13.10 i ty of [place] 4[place].2.[place] [phone] Ks dic[address] 2020-11-11 2020-11-11 Office Pedro Pablo Caraballo [facility] 1.2.511.025 [id number] [facility] 09:05:00 09:58:00 Visit Ramiro Handley 350.1.13.10 i ty of [place] 4.2.7.2.[place] [phone] [address] 2020-11-11 2020-11-11 Outpatient R PEDRO PABLO CARABALLO [facility] [id number] [facility] 09:00:00 09:00:00 ity of [facility] 2020-11-11 2020-11-11 Orders Doctor KADI 1.2.840.114 [id number] [facility] 00:00:00 00:00:00 Only Unassigned, KACIE 350.1.13.10 ity of [place] [facility] 4.2.7.2.686 Zeb as [phone] [address] 2020-11-01 2020-11-01 [facility] 1.2.840.114 [id number] [facility] 00:00:00 00:00:00 Matthias Handley 350.1.13.10 [place] [phone] [place] [address] 2020-10-22 2020-10-22 Office Per [facility] [id number] [facility] 13:39:51 14:38:54 Visit Matthias Handley 350.1.13.10 [place] [phone] [address] 2020-10-22 2020-10-22 Outpatient R PER [facility] [id number] [facility] 13:30:00 13:30:00 MATTHIAS ity [facility] 2020-10-22 2020-10-22 Orders Doctor KADI 1.2.840.114 [id number] [facility] 00:00:00 00:00:00 Only Unassigned, KACIE 350.1.13.10 ity of [place] [facility] 4.2.7.2.686 Zeb as [phone] [address] 2020-07-14 2020-07-14 Orders Doctor KADI 1.2.840.114 [id number] [facility] 00:00:00 00:00:00 Only Unassigned, KACIE 350.1.13.10 ity of [place] [facility] 4.2.7.2.686 Zeb as [phone] [address] Results Test Description Test Time Test Comments Results Result Comments Source POCT Test 2021-09-09 15:32:00 Test Item Value Reference Range Interpretation Comme nts POCT PREG (test code = 1605) Negative On board controls acceptable with C Line (test code = 3574) Yes POCT PREG LOT # (test code = 3575) [id number] POCT PREG TEST DATE (test code = 3576) [facility]07 [id number] 15:32:00 Test Item Value Reference Range Interpretation Comments POCT PREG (test code = 1605) Negative On board controls acceptable with Yes C Line (test code = 3574) POCT PREG LOT # (test code = 3575) [id number] POCT PREG TEST DATE (test 2022-07-07 code = 3576) [facility] [id number] 15:21:00 Test Item Value Reference Range Interpretation [...] ML/MIN (test code = GFRBED) CHEMISTRY 8 [id number] 15:21:00 Test Item Value Reference Range Interpretation Comments ISTAT-SODIUM (test 141 MMOL/L 134-147 N code = NAP) ISTAT-POTASSIUM (test 3.8 MMOL/L 3.4-5.0 N code = KP) ISTAT-CHLORIDE (test 106 MMOL/L 100-108 N Perform ed by code = CLP) certified opera tor at [facility] ISTAT CARBON DIOXIDE 23.0 [...] code = GFRBED) - XR CHEST 1 [id number] 14:44:00 FAX: Emma Stroud DO [phone] [place]: St: [facility] FAX: Leslie Oleary NP [phone] --------- Name: CAROLE ORTIZ [facility] : 1990 Age/S: 28/F [address] [place] [address] Unit #: [id number] Loc: [place], [id number] Phys: Leslie Oleary NP Acct: [id number] Dis Date: Status: REG ER PHONE #: [phone] ExamDate: 02/02/2019 1433 FAX #: [phone] Reason: Chest Pain EXAMS: CPT CODE: [id number] XR CHEST 1 [id number] 1 VIEW CXR. PORTABLE EXAM 2:26 PM HISTORY: Chest pain and dizziness for the past week. COMPARISON: 12/08/2016 chest x-ray. The lungs are clear with normal pulmonary vasculature. Cardiomediastinal silhouette normal. No pleural abnormality. Bony thorax intact. IMPRESSION: Normal exam. END OF IMPRESSION SL: [id number] at [id number] Reported and signed by: Stefan Fox M.D. CC: Emma Mcnulty DO; Leslie Oleary NP Technologist: RT Urmila(R) Trnscrd Date/Time/By: 02/02/2019 (9060) : By: Tommy Orig Print D/T: S: 02/02/2019 (3359) PAGE 1 Signed Report HCG SERUM [id number] 14:16:00 Test Item Value Reference Range Interpretation Comments HCG SERUM QUAL (test code = SERUM NEGATIVE NEGATIVE HCGQL) THYROID STIMULATING [id number] 14:16:00 Test Item Value Reference Range Interpretation Comments THYROID STIMULATING 5.29 0.42-5.47 N Results in HORMONE (test code = TSH) mi lli-International Units/mL [id number] 14:03:00 Test Item Value Reference Range Interpretation [...] TESTS AND APPROPRIATECLIN ICAL EUALUATIONS. HCG SERUM [id number] 13:57:00 Test Item Value Reference Range Interpretation Comments HCG SERUM QUAL (test code = SERUM NEGATIVE NEGATIVE HCGQL) THYROID STIMULATING [id number] 13:57:00 Test Item Value Reference Range Interpretation Comments THYROID STIMULATING HORMONE (test code 0.42-5.47 = TSH) CBC W/AUTO [id number] 13:49:00 Test Item Value Reference Range Interpretation [...] REQUIRED (test code NO = MDIFF) TROPONIN-I [id number] 13:43:00 Test Item Value Reference Range Interpretation Comments TROPONIN-I RAPID 0.00 ng/mL 0.00-0.08 N Performed b y certified (test code = final block press operator [facility] Ctr Negative: < = 0.08 Positive: >= [...] changes in trop onin levels characteristic of ND. Notes Date/Time Note Provider Source 2019-02-02 13:45:00-00:00 [facility] ([facility]) EMERGENCY PROVIDER REPORT REPORT#:[id number] REPORT STATUS: Signed DATE:02/02/19 TIME: 1344 PATIENT: CAROLE ORTIZ UNIT #: [id number] ROOM/BED: AGE: 28 SEX: F PCP PHYS: No Primary or Family Ph ysician SERVICE AUTHOR: Leslie Oleary STEAM HOIST OPERATOR * ALL edits or amendments must be made on the Scali/computer document * HPI-Chest Pain Under 40 General Confirmed Patient Yes Initial Greet Date/Time 02/02/19 1316 PCP None Presentation Chief Complaint Chest pain Hx Obtained From Patient Sudden in Onset? No Onset Occurred One week ago Symptom Duration Since onset Progression since Onset Intermittent Location Chest L Quality Sharp )( Migration/Movement None Free Text HPI Notes Free Text HPI Notes 28 y/o F with PMHx anxiety presents to the ED wi th c/o L chest pain onset x1 week ago. Pt reports brief ( 2 second) L sided C P that is sharp and releived spontaneously. Pt reports associated sx of inter mitent palpitations, lightheadedness and dizziness. Pt denies head tr auma. She reports she had palpiations several years ag o and was evaluated in an outside ED and advised she should see a test engineer nuclear equipment and have a Holter tejal monroe applied, but pt notes she has never had insurance and has never followed-u p. Pt does not note any exacerbating or relieving factors. Risk-Chest Pain Under 40 Risk Stratification )( Coronary Artery Disease Risk factors reviewed )( Pulmonary Embolism Risk factors reviewed, Est [facility] Medicine/BCP's )( AMI-Aspirin Aspirin Last 24 Hrs None )( HEART for MACE )( HEART for MACE Response Value History Low index of suspicion 0 ECG Interpretation Normal ECG 0 Age Age under 45 0 Risk Factors for CAD No risk factors known 0 Troponin < or = to NL troponin 0 Total 0 PERC Rule Heart rate 100 or over, Prior Hx of DVT/ PE, Exogenous estrogen use. No: Age 50 or over, O2 sat on RA < 95%, Recent trauma or benavidez rgery, Hemoptysis, Unilateral leg swelling. PERC Result One or more crit "Yes", PERC rule no t satisfied Review of Systems ROS Statements All systems rev neg except as marked. Focused Review of Systems Respiratory Denies: Shortness of breath. Cardiovascular Reports: Chest pain, Palpitations. GI Denies: Nausea, Vomiting. Neurologic Reports: Dizziness, Lightheaded. Past Medical History - Adult Stated Complaint CP/DIZZY X1 WEEK Allergies Coded Allergies: No Known Drug Allergies (04/16/17) Uncoded Allergies: FISH STICKS (Mild, RASH 02/24/15) Home Medications Active Scripts IBUPROFEN (MOTRIN) 800 MG PO Q8H PRN PRN MILD PA IN IBUPROFEN (MOTRIN) 800 MG PO Q8H PRN PRN MILD P AIN #30 TAB Prov: 03/09/18 DOCUSATE SODIUM (COLACE) 100 MG PO BID DOCUSATE SODIUM (COLACE) 100 MG PO BID #60 CAP Prov: 03/09/18 Reported Medications PNV/FE FUM/FA ( MULTIVITAMIN) 1 TAB PO D AILY Past Medical History: Reports: GERD/gastritis. Additional Surgical History Reports none Alcohol Use Denies EtOH use Drug Use Denies recreational drugs Smoking status for patients 13 years old or olde r: Never Smoker Physical Exam Vital Signs Vital Signs First Documented: Result Date Time Pulse Ox 99 02/02 1318 B/P 147/86 02/02 1318 B/P Mean 106 02/02 1318 Temp 36.8 02/02 1318 Pulse 110 02/02 1318 Resp 18 02/02 1318 Last Documented: Result Date Time Pulse Ox 100 02/02 1515 B/P 117/65 02/02 1515 B/P Mean 82 02/02 1515 Pulse 67 02/02 1515 Resp 16 02/02 1515 Temp 36.8 02/02 1318 Review of Vital Signs Reviewed Focused PE General/Const General/Const Awake, Alert, Well appearing, Wel l developed, Well nourished, Cooperative Behavior Anxious. Eyes Eyes EOMI, Conjunctiva NL MS Neck Neck Supple, Full range of motion Resp/Chest Respiratory/Chest Breath sounds NL, Breath soun ds = bilat, No respiratory distress, No rales, No rhonchi, No wheezing Cardiovascular Cardiovascular Regular rhythm, Heart sounds NL, No murmurs Heart Rate/Rhythm Tachycardia. Abdomen/GI Abdomen/GI Soft, Non-tender, No guarding, No re bound, No distention MS Back Back Inspection NL, No CVA tenderness MS Lower Extrem Lower Ext/Pelvis/MS Inspection NL, No edema Skin Skin Warm, Dry, Intact Neurologic Neurologic Oriented X3, Speech NL Psychiatric Psychiatric Affect NL, Mood NL Additional PE MS Head Head Atraumatic, Normocephalic Ears/Nose/Throat Ears/Nose/Throat Airway patent, Mucous membrane s moist Interpretation Diagnostics Lab Results Interpretation Results Laboratory Tests 02/02/19 1517: [Embedded Image Not Available] 02/02/19 1330: [Embedded Image Not Available] Laboratory Tests: 02/02 02/02 02/02 1517 1330 1330 Chemistry POC Sodium (134 - 147 MMOL/L) 141 POC Potassium (3.4 - 5.0 MMOL/L) 3.8 POC Chloride (100 - 108 MMOL/L) 106 Carbon Dioxide (21 - 33 mmol/L) 23.0 POC BUN (7 - 18 MG/DL) 9 POC Creatinine (0.6 - 1.3 MG/DL) 0.7 Estimated GFR (MDRD) (ML/MIN) 106 POC Glucose (70 - 110 MG/DL) 89 POC Ioniz Calcium Arsen (1.12 - 1.32 MG/DL) 1.19 Rapid Troponin I (0.00 - 0.08 ng/mL) 0.00 TSH (0.42 - 5.47) 5.29 Serum , Qual (NEGATIVE) SERUM NEGATIVE Coagulation D-Dimer (<=500 ng/mlFEU) 376 Hematology WBC (4.5 - 11.0 x10 3/uL) 7.03 RBC (3.54 - 5.02 x10 6/uL) 4.82 Hgb (11.0 - 15.0 g/dL) 14.2 Hct (33.0 - 45.0 %) 42.1 MCV (81.0 - 99.0 fL) 87.3 MCH (27.0 - 33.0 pg) 29.5 MCHC (33.0 - 37.0 g/dL) 33.7 RDW (11.5 - 14.5 %) 12.1 Plt Count (150 - 400 x10 3/uL) 321 MPV (7.0 - 9.0 fL) 11.0 H Neut % (Auto) (56.0 - 77.0 %) 52.8 L Lymph % (Auto) (14.0 - 32.0 %) 34.9 H [place] % (Auto) (4.8 - 9.0 %) 7.3 Eos % (Auto) (0.3 - 3.7 %) 3.7 Baso % (Auto) (0.0 - 2.0 %) 0.9 Neut # (Auto) (2.0 - 7.6 x10 3/uL) 3.72 Lymph # (Auto) (1.0 - 3.8 x10 3/uL) 2.45 [place] # (Auto) (0.1 - 0.8 x10 3/uL) 0.51 Eos # (Auto) (0.0 - 0.2 x10 3/uL) 0.26 H Baso # (Auto) (0.0 - 0.2 x10 3/uL) 0.06 Abs Immat Gran (auto) (0.00 - 0.03 x10 3/uL) 0. 03 Add Manual Diff NO Immature Gran % (0.0 - 2.0 %) 0.4 Nucleated RBC % (0 - 0 %) 0.0 Nucleated RBCs # (Man) (0.0 - 0.1 x10 3/uL) 0.0 0 Recent Impressions: RADIOLOGY - XR CHEST 1 V 02/02 1433 Report Impression - Status: SIGNED Entered: 02/02/2019 1447 IMPRESSION: Normal exam. END OF IMPRESSION SL: [id number] Impression By: KennyRTB - Stefan Fox M.D. Point of Care Testing Pulse Oximetry Pulse Ox % 99 On: Room air Interpretation Interpreted by me, Pulse oximetr y normal Time 1318 ECG #1 Interpretation Date 02/02/19 Time 1314 Interpreted by ED physician NL ECG Interpretation Normal rate, Normal sinus rhythm, No acute ischemic changes, No STEMI, Normal QRS, Normal ST waves, Normal T waves, Normal axis Rate 101 Re-Evaluation MDM Free Text MDM Notes Free Text MDM Notes labs are unremarkable- Trop is 0.00, D dimer is 376, TSH is WNL, electrolytes WNL. ECG is NSR. CXR is normal. Discussed result s with pt. Pt reports she has been having worsening an xiety and will have insurance starting next week, so is plannying to follow-up for anxiety me ds. Advised that I provided cardiology referral if she want to follow-up for holter mon itor as well. Return precautions discussed and provided. Pt understna ds and agrees with plan. Re-Evaluation/Progress #1 Time of Re-Eval 1449 Re-Eval Status Improved ED Course Medication(s) Ordered Medication(s) Ordered: Central Nervous System Agents Sig/Josiah Start time Last Medication Dose Route Stop Time Status Admin Ketorolac 15 MG X1ED STA 02/02 1347 DC 02/02 Tromethamine IV 02/02 1348 1357 Electrolytic, Caloric, And Gabriella Sig/Josiah Start time Last Medication Dose Route Stop Time Status Admin Sodium Chloride 0 ASDIR PRN 02/02 1330 DCD IV 02/03 1220 Sodium Chloride 1,000 ML X1ED STA 02/02 1320 DC 02/02 IV 02/02 1419 1329 Patient Discharge Departure Vital Signs/Condition Vital Signs First Documented: Result Date Time Pulse Ox 99 02/02 1318 B/P 147/86 02/02 1318 B/P Mean 106 02/02 1318 Temp 36.8 02/02 1318 Pulse 110 02/02 1318 Resp 18 02/02 1318 Last Documented: Result Date Time Pulse Ox 100 02/02 1515 B/P 117/65 02/02 1515 B/P Mean 82 02/02 1515 Pulse 67 02/02 1515 Resp 16 02/02 1515 Temp 36.8 02/02 1318 All vital signs available at the time of this en try have been reviewed. Condition Stable Clinical Impression Clinical Impression Primary Impression: Atypical chest pain Disposition Decision Discharge )( Discharged to Home Yes )( Time 1449 )( Date 02/02/19 Discharge/Care Plan Counseled Regarding Diagnosi s, Lab results, Imaging studies, Need for follow-up, When to return to ED Quality Measures 12-Lead ECG for CP Performed documented Electronically Signed by Leslie Oleary NP on 01/09 10/26 at 1525 RPT #:[id number] END OF REPORT 2019-02-02 13:45:00-00:00 [facility] ([facility] EMERGENCY PROVIDER REPORT REPORT#:[id number] REPORT STATUS: Signed DATE:02/02/19 TIME: 134 PATIENT: CAROLE ORTIZ UNIT #: [id number] ROOM/BED: AGE: 28 SEX: F PCP PHYS: No Primary or Family Ph ysician SERVICE AUTHOR: Leslie Oleary NP * ALL edits or amendments must be made on the Scali/computer document * Leslie Oleary 02/02/19 1345: HPI-Chest Pain Under 40 General Confirmed Patient Yes PCP None Presentation Chief Complaint Chest pain Hx Obtained From Patient Sudden in Onset? No Onset Occurred One week ago Symptom Duration Since onset Progression since Onset Intermittent Location Chest L Quality Sharp )( Migration/Movement None Free Text HPI Notes Free Text HPI Notes 28 y/o F with PMHx anxiety presents to the ED wi th c/o L chest pain onset x1 week ago. Pt reports brief ( 2 second) L sided C P that is sharp and releived spontaneously. Pt reports associated sx of inter mitent palpitations, lightheadedness and dizziness. Pt denies head tr auma. She reports she had palpiations several years ag o and was evaluated in an outside ED and advised she should see a test engineer nuclear equipment and have a Holter tejal monroe applied, but pt notes she has never had insurance and has never followed-u p. Pt does not note any exacerbating or relieving factors. Risk-Chest Pain Under 40 Risk Stratification )( Coronary Artery Disease Risk factors reviewed )( Pulmonary Embolism Risk factors reviewed, [facility] Medicine/BCP's )( AMI-Aspirin Aspirin Last 24 Hrs None )( HEART for MACE )( HEART for MACE Response Value History Low index of suspicion 0 ECG Interpretation Normal ECG 0 Age Age under 45 0 Risk Factors for CAD No risk factors known 0 Troponin < or = to NL troponin 0 Total 0 PERC Rule Heart rate 100 or over, Prior Hx of DVT/ PE, Exogenous estrogen use. No: Age 50 or over, O2 sat on RA < 95%, Recent trauma or benavidez rgery, Hemoptysis, Unilateral leg swelling. PERC Result One or more crit "Yes", PERC rule no t satisfied Review of Systems ROS Statements All systems rev neg except as marked. Focused Review of Systems Respiratory Denies: Shortness of breath. Cardiovascular Reports: Chest pain, Palpitations. GI Denies: Nausea, Vomiting. Neurologic Reports: Dizziness, Lightheaded. Past Medical History - Adult Stated Complaint CP/DIZZY X1 WEEK Allergies Coded Allergies: No Known Drug Allergies (04/16/17) Uncoded Allergies: FISH STICKS (Mild, RASH 02/24/15) Home Medications Active Scripts IBUPROFEN (MOTRIN) 800 MG PO Q8H PRN PRN MILD PA IN IBUPROFEN (MOTRIN) 800 MG PO Q8H PRN PRN MILD P AIN #30 TAB Prov: 03/09/18 DOCUSATE SODIUM (COLACE) 100 MG PO BID DOCUSATE SODIUM (COLACE) 100 MG PO BID #60 CAP Prov: 03/09/18 Reported Medications PNV/FE FUM/FA ( MULTIVITAMIN) 1 TAB PO D AILY Past Medical History: Reports: GERD/gastritis. Additional Surgical History Reports none Alcohol Use Denies EtOH use Drug Use Denies recreational drugs Smoking status for patients 13 years old or olde r: Never Smoker Physical Exam Vital Signs Vital Signs First Documented: Result Date Time Pulse Ox 99 02/02 1318 B/P 147/86 02/02 1318 B/P Mean 106 02/02 1318 Temp 36.8 02/02 1318 Pulse 110 02/02 1318 Resp 18 02/02 1318 Last Documented: Result Date Time Pulse Ox 100 02/02 1515 B/P 117/65 02/02 1515 B/P Mean 82 02/02 151 Pulse 67 02/02 1515 Resp 16 02/02 151 Temp 36.8 02/02 1318 Review of Vital Signs Reviewed Focused PE General/Const General/Const Awake, Alert, Well appearing, Wel l developed, Well nourished, Cooperative Behavior Anxious. Eyes Eyes EOMI, Conjunctiva NL MS Neck Neck Supple, Full range of motion Resp/Chest Respiratory/Chest Breath sounds NL, Breath soun ds = bilat, No respiratory distress, No rales, No rhonchi, No wheezing Cardiovascular Cardiovascular Regular rhythm, Heart sounds NL, No murmurs Heart Rate/Rhythm Tachycardia. Abdomen/GI Abdomen/GI Soft, Non-tender, No guarding, No re bound, No distention MS Back Back Inspection NL, No CVA tenderness MS Lower Extrem Lower Ext/Pelvis/MS Inspection NL, No edema Skin Skin Warm, Dry, Intact Neurologic Neurologic Oriented X3, Speech NL Psychiatric Psychiatric Affect NL, Mood NL Additional PE MS Head Head Atraumatic, Normocephalic Ears/Nose/Throat Ears/Nose/Throat Airway patent, Mucous membrane s moist Interpretation Diagnostics Lab Results Interpretation Results Laboratory Tests 02/02/19 1517: [Embedded Image Not Available] 02/02/19 1330: [Embedded Image Not Available] Laboratory Tests: 02/02 02/02 02/02 1517 1330 1330 Chemistry POC Sodium (134 - 147 MMOL/L) 141 POC Potassium (3.4 - 5.0 MMOL/L) 3.8 POC Chloride (100 - 108 MMOL/L) 106 Carbon Dioxide (21 - 33 mmol/L) 23.0 POC BUN (7 - 18 MG/DL) 9 POC Creatinine (0.6 - 1.3 MG/DL) 0.7 Estimated GFR (MDRD) (ML/MIN) 106 POC Glucose (70 - 110 MG/DL) 89 POC Ioniz Calcium Arsen (1.12 - 1.32 MG/DL) 1.19 Rapid Troponin I (0.00 - 0.08 ng/mL) 0.00 TSH (0.42 - 5.47) 5.29 Serum , Qual (NEGATIVE) SERUM NEGATIVE Coagulation D-Dimer (<=500 ng/mlFEU) 376 Hematology WBC (4.5 - 11.0 x10 3/uL) 7.03 RBC (3.54 - 5.02 x10 6/uL) 4.82 Hgb (11.0 - 15.0 g/dL) 14.2 Hct (33.0 - 45.0 %) 42.1 MCV (81.0 - 99.0 fL) 87.3 MCH (27.0 - 33.0 pg) 29.5 MCHC (33.0 - 37.0 g/dL) 33.7 RDW (11.5 - 14.5 %) 12.1 Plt Count (150 - 400 x10 3/uL) 321 MPV (7.0 - 9.0 fL) 11.0 H Neut % (Auto) (56.0 - 77.0 %) 52.8 L Lymph % (Auto) (14.0 - 32.0 %) 34.9 H [place] % (Auto) (4.8 - 9.0 %) 7.3 Eos % (Auto) (0.3 - 3.7 %) 3.7 Baso % (Auto) (0.0 - 2.0 %) 0.9 Neut # (Auto) (2.0 - 7.6 x10 3/uL) 3.72 Lymph # (Auto) (1.0 - 3.8 x10 3/uL) 2.45 [place] # (Auto) (0.1 - 0.8 x10 3/uL) 0.51 Eos # (Auto) (0.0 - 0.2 x10 3/uL) 0.26 H Baso # (Auto) (0.0 - 0.2 x10 3/uL) 0.06 Abs Immat Gran (auto) (0.00 - 0.03 x10 3/uL) 0. 03 Add Manual Diff NO Immature Gran % (0.0 - 2.0 %) 0.4 Nucleated RBC % (0 - 0 %) 0.0 Nucleated RBCs # (Man) (0.0 - 0.1 x10 3/uL) 0.0 0 Recent Impressions: RADIOLOGY - XR CHEST 1 V 02/02 1433 Report Impression - Status: SIGNED Entered: 02/02/2019 1447 IMPRESSION: Normal exam. END OF IMPRESSION SL: [id number] Impression By: KennyRTB - Stefan Fox M.D. Point of Care Testing Pulse Oximetry Pulse Ox % 99 On: Room air Interpretation Interpreted by me, Pulse oximetr y normal Time 1318 ECG #1 Interpretation Date 02/02/19 Time 1314 Interpreted by ED physician NL ECG Interpretation Normal rate, Normal sinus rhythm, No acute ischemic changes, No STEMI, Normal QRS, Normal ST waves, Normal T waves, Normal axis Rate 101 Re-Evaluation MDM Free Text MDM Notes Free Text MDM Notes labs are unremarkable- Trop is 0.00, D dimer is 376, TSH is WNL, electrolytes WNL. ECG is NSR. CXR is normal. Discussed result s with pt. Pt reports she has been having worsening an xiety and will have insurance starting next week, so is plannying to follow-up for anxiety me ds. Advised that I provided cardiology referral if she want to follow-up for holter mon itor as well. Return precautions discussed and provided. Pt understna ds and agrees with plan. Re-Evaluation/Progress #1 Time of Re-Eval 1449 Re-Eval Status Improved ED Course Medication(s) Ordered Medication(s) Ordered: Central Nervous System Agents Sig/Josiah Start time Last Medication Dose Route Stop Time Status Admin Ketorolac 15 MG X1ED STA 02/02 1347 DC 02/02 Tromethamine IV 02/02 1348 1357 Electrolytic, Caloric, And Gabriella Sig/Josiah Start time Last Medication Dose Route Stop Time Status Admin Sodium Chloride 0 ASDIR PRN 02/02 1330 DCD IV 02/03 1220 Sodium Chloride 1,000 ML X1ED STA 02/02 1320 DC 02/02 IV 02/02 1419 1329 Patient Discharge Departure Vital Signs/Condition Vital Signs First Documented: Result Date Time Pulse Ox 99 02/02 1318 B/P 147/86 02/02 1318 B/P Mean 106 02/02 1318 Temp 36.8 02/02 1318 Pulse 110 02/02 1318 Resp 18 02/02 1318 Last Documented: Result Date Time Pulse Ox 100 02/02 1515 B/P 117/65 02/02 1515 B/P Mean 82 02/02 1515 Pulse 67 02/02 1515 Resp 16 02/02 151 Temp 36.8 02/02 1318 All vital signs available at the time of this en try have been reviewed. Condition Stable Clinical Impression Clinical Impression Primary Impression: Atypical chest pain Disposition Decision Discharge )( Discharged to Home Yes )( Time 1449 )( Date 02/02/19 Discharge/Care Plan Counseled Regarding Diagnosi s, Lab results, Imaging studies, Need for follow-up, When to return to ED Quality Measures 12-Lead ECG for CP Performed documented Babita Cisneros 02/02/19 1607: HPI-Chest Pain Under 40 General Initial Greet Date/Time 02/02/19 1316 Patient Discharge Departure Supervising Physician Note MidLv Saw Pt Alone I have reviewed the PA/STEAM HOIST OPERATOR's note and plan of car e. I was available for consultation as needed at al l times during the patient's visit in the emergency department. I agree with the clinical impression , plan and disposition. Electronically Signed by Leslie Oleary NP on 01/09 10/26 at 1525 Electronically Signed by Babita Cisneros MD on 0 02/02/19 at 1607 RPT #:[id number] END OF REPORT
--- NOTE | 2022-12-04 21:15 | RAD REPORT ---
EXAM DESCRIPTION: RAD - Elbow Left 3 View - 12/04/2022 9:06 pm CLINICAL HISTORY: Left elbow pain status post trauma FINDINGS: 9 millimeter avulsion fracture radial head/ neck. No dislocation
--- NOTE | 2022-12-04 21:16 | RAD REPORT ---
EXAM DESCRIPTION: RAD - Forearm Left - 12/04/2022 9:07 pm CLINICAL HISTORY: Left forearm pain status post injury FINDINGS: 9 millimeter avulsion fracture radial head/ neck. No dislocation
--- NOTE | 2022-12-04 21:27 | ER ---
Nurse's Notes [facility] Name: Bianca Padron Age: 32 yrs Sex: Female : 1990 Arrival Date: 12/04/2022 Time: 19:44 Bed 9 Private MD: Diagnosis: Fracture of head of radius-left Presentation: 12/04 20:15 Chief complaint: Patient states: left elbow pain s/p fall. Pt states that she also hit cm10 head. Pt states that she fell trying to do a flip. Coronavirus screen: Vaccine status: Patient reports being unvaccinated. Ebola Screen: No symptoms or risks identified at this time. Initial Sepsis Screen: Does the patient meet any 2 criteria? No. Patient's initial sepsis screen is negative. Does the patient have a suspected source of infection? No. Patient's initial sepsis screen is negative. Risk Assessment: Do you want to hurt yourself or someone else? Patient reports no desire to harm self or others. Onset of symptoms was December 04, 2022. 20:15 Method Of Arrival: Ambulatory cm10 20:15 Acuity: EVELYN 4 cm10 Historical: - Allergies: 20:19 No Known Allergies; cm10 - Home Meds: 20:19 None [Active]; cm10 - PMHx: 20:19 None; cm10 - PSHx: 20:19 tubal ligation; cm10 - Immunization history:: Adult Immunizations unknown. - Social history:: Smoking status: Patient denies any tobacco usage or history of. Vital Signs: 20:15 BP 124 / 77; Pulse 94; Resp 16; Temp 97.6(TE); Pulse Ox 100% on R/A; Weight 74.39 kg; cm10 Height 5 ft. 1 in. ; Pain 8/10; 20:15 Body Mass Index 30.99 (74.39 kg, 154.94 cm) cm10 20:15 Pain Scale: Adult cm10 ED Course: 19:47 Patient arrived in ED. ag3 19:49 Kingsley Seals PA is PHCP. cp 19:49 Kingsley Harper MD is Attending Physician. cp 20:19 Triage completed. cm10 20:19 Arm band placed on Patient placed in waiting room. cm10 21:07 XRAY Elbow LEFT 3 view In Process Unspecified. EDMS 21:07 XRAY Forearm LEFT In Process Unspecified. EDMS 21:24 Ld Shhaid MD is Referral Physician. cp 22:26 Tayla Rogers, RN is Primary Nurse. vc1 Administered Medications: 22:34 Drug: Ibuprofen PO 800 mg Route: PO; vc1 22:34 Drug: Acetaminophen-Codeine PO (300 mg-30 mg) 2 tabs Route: PO; vc1 Outcome: 21:26 Discharge ordered by . cp 23:21 Patient left the ED. vc1 Signatures: Dispatcher [employer] EDMS Kingsley Seals PA PA Ronit Escalante ag3 Tayla Rogers, RN RN vc1 Ashlie Bautista RN RN cm10
--- NOTE | 2022-12-04 21:27 | EDPHYS ---
Physician Documentation [facility] Name: Bianca Padron Age: 32 yrs Sex: Female : 1990 Arrival Date: 12/04/2022 Time: 19:44 Bed 9 Private MD: ED Physician Kingsley Harper HPI: 12/04 20:30 This 32 yrs old Female presents to ER via Ambulatory with complaints of Arm cp Pain, Arm Injury. 20:30 The patient or guardian complains of injury, pain, that is acute. The complaints affect cp the left elbow and left forearm. Context: resulted from a fall, off trampoline. Onset: The symptoms/episode began/occurred today. Treatment prior to arrival includes: no previous treatment. Associated signs and symptoms: Pertinent positives: swelling, pain with AROM. Severity of symptoms: in the emergency department the symptoms have improved, mildly. Patient is a 32-year-old female who presents to the emergency department with complaints of left elbow pain and injury. Patient reports she was attempting to perform a flip on the trampoline approximately 2 to 3 feet high when she lost her balance fell onto grass landing onto her left elbow. Patient reports she did hit her head but denies any loss of consciousness no complaints of headache or pain. Historical: - Allergies: 20:19 No Known Allergies; cm10 - Home Meds: 20:19 None [Active]; cm10 - PMHx: 20:19 None; cm10 - PSHx: 20:19 tubal ligation; cm10 - Immunization history:: Adult Immunizations unknown. - Social history:: Smoking status: Patient denies any tobacco usage or history of. ROS: 20:35 Constitutional: Negative for body aches, chills, fever, poor PO intake. cp 20:35 Cardiovascular: Negative for chest pain, edema, palpitations. cp 20:35 Eyes: Negative for injury, pain, redness, and discharge. cp 20:35 Neck: Negative for pain with movement, pain at rest, stiffness. 20:35 Respiratory: Negative for cough, shortness of breath, wheezing. 20:35 Abdomen/GI: Negative for abdominal pain, nausea, vomiting, and diarrhea. 20:35 Back: Negative for pain at rest, pain with movement. 20:35 MS/extremity: Positive for decreased range of motion, pain, swelling, tenderness, of the left forearm and left elbow, Negative for deformity, paresthesias. 20:35 Neuro: Negative for altered mental status, headache, numbness, syncope, weakness. 20:35 All other systems are negative. Exam: 20:40 Constitutional: The patient appears in no acute distress, alert, awake, non-toxic, well cp developed, well nourished, uncomfortable. 20:40 Head/face: Noted is contusion, that is superficial, of the left frontal area, cp tenderness, that is mild, of the left frontal area. 20:40 Eyes: Periorbital structures: appear normal, Pupils: equal, round, and reactive to light and accomodation, Extraocular movements: intact throughout, Conjunctiva: normal, no exudate, no injection, Sclera: no appreciated abnormality, Lids and lashes: appear normal, bilaterally. 20:40 ENT: External ear(s): are unremarkable, Nose: is normal, Mouth: Lips: moist, Oral mucosa: pink and intact, moist, Posterior pharynx: is normal, airway is patent, no erythema, no exudate. 20:40 Neck: C-spine: vertebral tenderness, is not appreciated, crepitus, is not appreciated, ROM/movement: is normal, is supple, without pain, no range of motions limitations. 20:40 Chest/axilla: Inspection: normal. 20:40 Cardiovascular: Rate: normal, Rhythm: regular. 20:40 Respiratory: the patient does not display signs of respiratory distress, Respirations: normal, no use of accessory muscles, no retractions, labored breathing, is not present, Breath sounds: are clear throughout, no decreased breath sounds, no stridor, no wheezing. 20:40 Abdomen/GI: Inspection: abdomen appears normal, Palpation: abdomen is soft and non-tender, in all quadrants. 20:40 Back: pain, is absent, ROM is normal, no vertebral tenderness to palpation. 20:40 Musculoskeletal/extremity: Extremities: grossly normal except: noted in the left elbow and left proximal forearm: pain, swelling, tenderness, ROM: limited passive range of motion due to pain, in the left elbow, Pulses: noted to be 2+ in the left radial artery, the left arm Sensation intact. 20:40 Neuro: Orientation: to person, place \T\ time. Mentation: is normal, Motor: moves all fours, strength is normal, Sensation: is normal, Gait: is steady, at a normal pace, without difficulty. Vital Signs: 20:15 BP 124 / 77; Pulse 94; Resp 16; Temp 97.6(TE); Pulse Ox 100% on R/A; Weight 74.39 kg; cm10 Height 5 ft. 1 in. ; Pain 8/10; 20:15 Body Mass Index 30.99 (74.39 kg, 154.94 cm) cm10 20:15 Pain Scale: Adult cm10 Procedures: 22:45 Splinting: Splint applied to left elbow using Orthoglass splint, sling, posterior cp elbow. applied by nurse. Examined by me, post splint application: neurovascular intact, Patient tolerated well. MDM: 20:20 Patient medically screened. cp 21:25 Data reviewed: vital signs, nurses notes, radiologic studies, plain films. cp 21:25 I considered the following discharge prescriptions or medication management in the cp emergency department Medications were administered in the Emergency Department. See MAR. Counseling: I had a detailed discussion with the patient and/or guardian regarding: the historical points, exam findings, and any diagnostic results supporting the discharge/admit diagnosis, radiology results, the need for outpatient follow up, for definitive care, a orthopedic surgeon, to return to the emergency department if symptoms worsen or persist or if there are any questions or concerns that arise at home. Response to treatment: the patient's symptoms have markedly improved after treatment, and as a result, I will discharge patient. 12/04 20:20 Order name: XRAY Elbow LEFT 3 view cp 12/04 20:20 Order name: XRAY Forearm LEFT cp 12/04 21:22 Order name: Sling; Complete Time: 22:54 cp 12/04 21:22 Order name: Splint - Elbow - Posterior; Complete Time: 22:54 cp Administered Medications: 22:34 Drug: Ibuprofen PO 800 mg Route: PO; vc1 22:34 Drug: Acetaminophen-Codeine PO (300 mg-30 mg) 2 tabs Route: PO; vc1 Disposition Summary: 12/04/22 21:26 Discharge Ordered Location: Home cp Problem: new cp Symptoms: have improved cp Condition: Stable cp Diagnosis - Fracture of head of radius - left cp Followup: cp - With: Ld Shahid MD - When: 2 - 3 days - Reason: left elbow fracture Discharge Instructions: - Discharge Summary Sheet cp - Radial Head Fracture cp Forms: - Medication Reconciliation Form cp - Thank You Letter cp - Antibiotic Education cp - Prescription Opioid Use cp - Patient Portal Instructions cp Prescriptions: - Naprosyn 500 mg Oral Tablet - take 1 tablet by ORAL route 2 times per day take with food; 20 tablet; Refills: cp 0, Product Selection Permitted - Tramadol 50 mg Oral Tablet - take 1 tablet by ORAL route every 8 hours as needed; 12 tablet; Refills: 0, cp Product Selection Permitted Signatures: Dispatcher [employer] EDMS Kingsley Seals PA PA cp Calcote, Vanessa, RN RN vc1 Ashlie Bautista RN RN cm10 Corrections: (The following items were deleted from the chart) 12/05 21:21 12/04 20:30 Patient is a 32-year-old female who presents to the emergency department cp with complaints of left elbow pain and injury. Patient reports she was standing on the trampoline approximately 2 to 3 feet high when she lost her balance fell onto grass landing onto her left elbow. Patient reports she did hit her head but denies any loss of consciousness no complaints of headache or pain. cp 12/05 21:21 12/04 22:30 Splinting: Splint applied to left elbow using Orthoglass splint, sling, cp posterior elbow. applied by nurse. Examined by me, post splint application: neurovascular intact, Patient tolerated well, cp
[2022-12-04] MEDS ORDERED: CODEINE 30MG/APAP 300MG TAB ONE (22:37)
[2022-12-04] MEDS ORDERED: IBUPROFEN 400 MG TAB ONE (22:38)
[2022-12-04 23:50] VITALS: BP 124/77; TEMP 97.6; O2SAT 100
== END 2022-12-04 23:21 | disposition home or self-care (01) ==
LOC: ER 19:44
PROC: 2W3BX1Z Immobilization of Left Upper Arm using Splint (ICD-10-PCS; principal; 2022-12-04)
DX: S52.122A Displaced fracture of head of left radius, initial encounter for closed fracture (principal)
CPT/HCPCS: 99282